=== PATIENT | female | born 1960 | race African-American/Black ===

== ENCOUNTER 2023-06-14 10:17 | Outpatient (AMB) | payer OTHER, SELFPAY ==
--- NOTE | 2023-06-14 10:25 | A.OFFVIS_ITS ---
Intake Vital Signs 06/14/23 10:26 Height 5 ft 2 in Weight 220 lb 10.923 oz BMI 40.4 BP 140/72 H Blood Pressure Location Rt brachial Position Sitting Pulse 71 Pulse Source Pulse Oximeter Pulse Oximetry (%) 99 Intake Visit Reasons: Rheumatoid Arthritis Intake Note: * New pt presents today for RA consult. Previously seen at [place]. * C/o pain in multiple joints. * Requesting MTX script, all out. 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 She had last been seen by me in August of 2021. She has remained on methotrexate 10 mg weekly with folic acid 1 mg daily. There are still pains in the knees, shoulders, and arms. Overall though she seems relatively functional with the current regimen. She does not think she had any side effects with the met hotrexate. She has been having occasional lab work to monitor its use. [facility] Medical History (Updated 06/14/23 @ 18:58 by Jean-Pierre Menjivar MD) Benign neoplasm of colon Dysphagia Hyperlipidemia Hypertension Nonischemic cardiomyopathy Osteoarthritis of multiple joints Pain in joint, multiple sites Rheumatoid arthritis Type 2 diabetes mellitus Surgical History History of salpingo-oophorectomy Hx of colonoscopy S/P cataract extraction Family History (Updated 06/14/23 @ 10:29 by ABMER Bales) Father Myocardial infarction Diabetes Hypertension Mother Arthritis Daughter Autism Brother Diabetes Social History (Updated 06/14/23 @ 10:29 by AMBER Bales) Household Members: Spouse Alcohol intake: current Alcohol intake frequency: holidays/special occasions only Patient Tobacco Use Status: Never used Tobacco Current occupational status: employed Review of Systems Const Details: Negative for appetite change, weight change, fever, chills, malaise and fatigue ENT Details: Negative for hearing change, tinnitus, oral ulcer, nose bleeds and oral dryness. Card Details: Negative chest pain, edema and syncope Resp Details: Negative for SOB, cough and wheezing GI Details: Negative indigestion/heartburn, nausea, abdominal pain, bowel changes, diarrhea, constipation and bloody stool. Endo Details: Negative for polyuria and polydypsia Kostas/Lymph Details: Negative for excessive bruising or bleeding. Physical Exam Vital Signs: Last Vital Signs Pulse 71 06/14/23 10:26 BP 140/72 H 06/14/23 10:26 Pulse Ox 99 06/14/23 10:26 BMI result Body Mass Index 40.4 APPEARANCE: Patient in no acute distress EYES no redness, pupils equal and reactive to light, eyelids normal. No temporal artery tenderness, redness or swelling. EXTREMITIES: No edema, no calf tenderness, normal peripheral pulses. JOINT EXAM:?? Cervical Spine:.? Full range of motion with slight discomfort at the extremes of motion. No tenderness. Thoracic Spine:.? No scoliosis.? No tenderness on palpation. Lumbar Spine:.? Alignment normal.? Full range of motion without pain, no tenderness. Chest Wall:.? No tenderness, swelling, increased warmth or erythema. Hands: Right: Normal pain-free range of motion with some slight thickening at the 3rd MCP. The 2nd 3rd MCP have some slight tenderness. There is no swelling or tenderness in the PIP joints. There is no flexor tendon triggering, flexor tendon tenderness or swelling. Other joints have no swelling or tenderness. Left:? Normal pain-free range of motion without tenderness, swelling, increased warmth or erythema. Able to make a full fist and has a good teacher specialist strength. Wrists: Left: Slight pain with flexion extension at 75 degrees. There is some minimal tenderness but no swelling. Right: Normal pain-free range of motion without tenderness, swelling, increased warmth or erythema. Elbows:. Normal pain-free range of motion without tenderness, swelling, increased warmth or erythema. Shoulders:. Left: Mild discomfort with abduction at 150 degrees or with extremes of rotation. Motion may be slightly limited at that point. There is some minimal anterior tenderness without swelling or abductor weakness. Right:?? Full range of motion without pain. No tenderness, weakness, swelling, increased warmth or erythema. Hips:.? Full range of motion without pain. Hip bursa:.? No tenderness. Knees:.?? Normal pain-free range of motion with mild patellofemoral crepitus. There is some minimal medial compartment tenderness bilaterally but no effusion, soft tissue swelling, increased warmth or erythema.? There is no effusion or crepitation Ankles:.? Normal pain-free range of motion without tenderness, swelling, increased warmth or erythema. Feet:.? Normal pain-free range of motion without tenderness, swelling, increased warmth or erythema. Tender points:.? No tenderness to digital palpation at the occiput, trapezius, second rib, lateral epicondyle, knees, greater trochanter and gluteal area bilaterally. ? 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 Related to cardiomyopathy - 10/03 - eye exam [place] Code(s): M06.9 - Rheumatoid arthritis, unspecified Plan Rheumatoid arthritis with it appears fairly good control of synovitis with curr ent treatment. She has not had any obvious side effects. She is due for lab work today and again in 2 months and 4 months. We will continue with treatment assuming the lab work is okay. Follow-up in 4 months. Orders: Orders Erythrocyte Sedimentation Rate Today M06.9 - Rheumatoid arthritis, unspecified Alanine Aminotransferase Today M06.9 - Rheumatoid arthritis, unspecified, Z79.899 - Other [place] [facility] (current) drug therapy Aspartate Amino Transferase Today M06.9 - Rheumatoid arthritis, unspecified, Z79.899 - Other health education assistant (current) drug therapy C Reactive Protein Today M06.9 - Rheumatoid arthritis, unspecified Complete Blood Count Auto Diff Today M06.9 - Rheumatoid arthritis, unspecified, Z79.899 - Other [place] [facility] (current) drug therapy Creatinine Today M06.9 - Rheumatoid arthritis, unspecified, Z79.899 - Other [place] [facility] (current) drug therapy Medications: New methotrexate sodium 10 mg (4 x 2.5 mg) PO QWEEK 48 tabs 1RF M06.9 - Rheumatoid arthritis, unspecified folic acid 1 mg PO DAILY 90 tabs 3RF M06.9 - Rheumatoid arthritis, unspecified Coding Level of Care Code Est Pt Level 3 (83227) Diagnoses Osteoarthritis of left glenohumeral joint M19.012 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
[2023-06-14 10:26] VITALS: BP 140/72; PULSE 71; O2SAT 99; BMI 40.4
== END 2023-06-14 11:36 | disposition home or self-care (01) ==
PROVIDERS: PCP Internal Medicine; Referring Provider Internal Medicine; Visit Provider Internal Medicine Rheumatology
DX: M19.012 Primary osteoarthritis, left shoulder (principal); Z79.899 Other long term (current) drug therapy; M06.9 Rheumatoid arthritis, unspecified
CPT/HCPCS: 99213

== ENCOUNTER → 2023-06-14 10:17 | Outpatient (BNVA) | payer OTHER, SELFPAY | PROVIDERS: Visit Provider Internal Medicine Rheumatology ==

== ENCOUNTER 2023-07-23 10:30 | Outpatient (REF) | payer OTHER, SELFPAY ==
[2023-07-23 13:45] LABS: Basophils Percent Auto 0.1 % (0-2); Eosinophils Percent Auto 0.3 % (0-4); Hematocrit 38.8 % (37.0-47.0); Hemoglobin 12.6 g/dl (12.0-16.0); Imm Gran Abs Auto 0.02 X10*3/uL (0.00-0.03); Imm Gran Pct Auto 0.3 % (0.0-0.4); Lymphocytes Absolute Auto 2.3 X10*3/uL (1.2-4.9); Lymphocytes Percent Auto 32.3 % (20-40); MANUAL DIFF FLAG SCAN; Mean Corpuscular HGB Conc 32.5 g/dl (31.0-35.0); Mean Corpuscular Hemoglobin 28.6 pg (27.0-33.0); Mean Corpuscular Volume 88.2 fL (80.0-98.0); Mean Platelet Volume 13.1 fL (9.4-12.3); Monocytes Absolute Auto 0.6 X10*3/uL (0.1-1.2); Neutrophils Absolute Auto 4.2 x10*3/uL (2.0-8.3); PLT CLUMP 1; Red Cell Distribution Width 14.2 % (11.0-16.0); SCAN SMEAR FLAG 1
[2023-07-23 13:52] LABS: White Blood Count 7.1 X10*3/uL (4.8-10.8)
[2023-07-23 13:59] LABS: Alanine Aminotransferase 14 U/L (0-31); Aspartate Amino Transferase 18 U/L (5-31); Estimated Glomerular Filt Rate > 60
[2023-07-23 14:39] LABS: Platelet Count 156 X10*3/uL (160-400); SLIDE REVIEW VERIFIED
[2023-07-23 15:03] LABS: Erythrocyte Sedimentation Rate 57 MM/HR (0-20)
== END 2023-07-23 10:31 | disposition home or self-care (01) ==
LOC: HO.10HDL 10:30
PROVIDERS: Visit Provider Internal Medicine Rheumatology
DX: M06.9 Rheumatoid arthritis, unspecified (principal); Z79.899 Other long term (current) drug therapy
CPT/HCPCS: 36415; 82565; 84450; 84460; 85025; 85652; 86140

== ENCOUNTER 2023-10-08 10:40 | Outpatient (REF) | payer OTHER, SELFPAY ==
[2023-10-08 12:17] LABS: Alanine Aminotransferase 15 U/L (0-31); Aspartate Amino Transferase 23 U/L (5-31); C Reactive Protein 0.91 mg/dL (< or = 0.50); Estimated Glomerular Filt Rate > 60
== END 2023-10-08 10:41 | disposition home or self-care (01) ==
LOC: HO.LAB 10:40
PROVIDERS: Visit Provider Internal Medicine Rheumatology
DX: M06.9 Rheumatoid arthritis, unspecified (principal); Z79.899 Other long term (current) drug therapy
CPT/HCPCS: 36415; 82565; 84450; 84460; 85025; 85652; 86140

== ENCOUNTER 2023-10-12 10:23 | Outpatient (AMB) | payer MEDICARE, OTHER, SELFPAY ==
[2023-10-12 10:34] VITALS: BP 98/64; PULSE 72; TEMP 36; BMI 39.1
--- NOTE | 2023-10-12 10:34 | A.OFFVIS_ITS ---
Intake Vital Signs 10/12/23 10:34 Height 5 ft 2 in Weight 213 lb 10.047 oz BMI 39.1 BP 98/64 Blood Pressure Location Lt brachial Position Sitting Pulse 72 Pulse Source Palpation Temp 96.8 F Temp Source Skin Intake Visit Reasons: 4 mnts f/u for RA Intake Note: Patient presents today to follow up on RA. 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 Required: No Accompanied by: Self / Same As Patient Allergies No Known Allergies Allergy (Verified 10/12/23 10:36) Medication List - Last Reconciled 10/12/23 by Jean-Pierre Menjivar MD atorvastatin 20 mg PO DAILY carvedilol 6.25 mg PO BID dulaglutide (Trulicity) mg subcut empagliflozin (Jardiance) 10 mg PO DAILY folic acid 1 mg PO DAILY furosemide 40 mg PO DAILY metformin ER 500 mg PO BID methotrexate sodium 10 mg (4 x 2.5 mg) PO QWEEK sacubitril-valsartan 24-26 mg (Entresto) 1 tab PO BID spironolactone 25 mg PO DAILY HPI HPI Comments History of Present Illness Details The patient returns for evaluation of her seropositive rheumatoid arthritis. She remains on methotrexate 10 mg weekly with folic acid 1 mg daily. Most joints are fairly comfortable. She does get some occasional sharp pains in the left wrist associated with some freezing up of the wrist. It is unclear whether this is from flexor tenosynovitis in the fingers or just muscle spasm in the wrist. She does not have any paresthesias in the hands or feet. She remains on her medicines for her CHF and diabetes. Those problems seem to be stable. [facility] Medical History (Updated 06/14/23 @ 18:58 by Jean-Pierre Menjivar MD) Benign neoplasm of colon Nonischemic cardiomyopathy Type 2 diabetes mellitus Osteoarthritis of multiple joints Pain in joint, multiple sites Rheumatoid arthritis Dysphagia Hyperlipidemia Hypertension Surgical History Hx of colonoscopy History of salpingo-oophorectomy S/P cataract extraction Family History Father Myocardial infarction Diabetes Hypertension Mother Arthritis Daughter Autism Brother Diabetes Social History Household Members: Spouse Alcohol intake: current Alcohol intake frequency: holidays/special occasions only Patient Tobacco Use Status: Never used Tobacco Current occupational status: employed Review of Systems Const Details: Negative for appetite change, weight change, fever, chills, malaise and fatigue Eyes Details: Negative for vision change, dry eyes,headaches and dizziness ENT Details: Negative for hearing change, tinnitus, oral ulcer, nose bleeds and oral dryness. Card Details: Negative chest pain, edema and syncope Resp Details: Negative for SOB, cough and wheezing GI Details: Negative indigestion/heartburn, nausea, abdominal pain, bowel changes, diarrhea, constipation and bloody stool. Endo Details: Negative for polyuria and polydypsia Kostas/Lymph Details: Negative for excessive bruising or bleeding. Physical Exam Vital Signs: Last Vital Signs Temp 96.8 F 10/12/23 10:34 Pulse 72 10/12/23 10:34 BP 98/64 10/12/23 10:34 BMI result Body Mass Index 39.1 APPEARANCE: Patient in no acute distress EYES no redness, pupils equal and reactive to light, eyelids normal EXTREMITIES: No edema, no calf tenderness, normal peripheral pulses. JOINT EXAM: Cervical Spine:.? Full range of motion with slight discomfort at the extremes of motion. No tenderness. Thoracic Spine:.? No scoliosis.? No tenderness on palpation. Lumbar Spine:.? Alignment normal.? Full range of motion without pain, no tenderness. Chest Wall:.? No tenderness, swelling, increased warmth or erythema. Hands: Right: Normal pain-free range of motion with some slight thickening at the 3rd MCP. MCP have some no tenderness. There is no swelling or tenderness in the PIP joints. There is no flexor tendon triggering, flexor tendon tenderness or swelling. Other joints have no swelling or tenderness. Left:? Normal pain-free range of motion without tenderness, swelling, increased warmth or erythema. Able to make a full fist and has a good cap sizer strength. Wrists: Left: Slight pain with flexion extension at 75 degrees. There is some minimal tenderness but no swelling. Right: Normal pain-free range of motion without tenderness, swelling, increased warmth or erythema. Elbows: Normal pain-free range of motion without tenderness, swelling, increased warmth or erythema. Shoulders:. Left: Mild discomfort with abduction at 150 degrees or with extremes of rotation. Motion may be slightly limited at that point. There is some minimal anterior tenderness without swelling or abductor weakness. Right:?? Full range of motion without pain. No tenderness, weakness, swelling, increased warmth or erythema. Hips:? Full range of motion without pain. Hip bursa:.? No tenderness. Knees:.?? Normal pain-free range of motion with mild patellofemoral crepitus. There is some minimal medial compartment tenderness bilaterally but no effusion, soft tissue swelling, increased warmth or erythema.? There is no effusion or crepitation Ankles:? Normal pain-free range of motion without tenderness, swelling, increased warmth or erythema. Feet:? Normal pain-free range of motion without tenderness, swelling, increased warmth or erythema. Tender points:? No tenderness to digital palpation at the occiput, trapezius, second rib, lateral epicondyle, knees, greater trochanter and gluteal area bilaterally. ?? 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 Related to cardiomyopathy - 10/03 - eye exam [place] Code(s): M06.9 - Rheumatoid arthritis, unspecified Plan Rheumatoid arthritis with good control of synovitis with current treatment. I think the occasional catching in the left wrist could be just muscle spasm as I do not feel any flexor tenosynovial tenderness, nodularity, or triggering. If she notes that the fingers are triggering that we could proceed with a corticosteroid injection or surgery for that problem if it is bothersome enough. She does not seem to have any side effects with the methotrexate so we will continue as above. I have recommended repeat lab work again in November and January. A follow-up in 4 months would be reasonable. Orders: Orders C Reactive Protein Today M06.9 - Rheumatoid arthritis, unspecified C Reactive Protein 1 Month M06.9 - Rheumatoid arthritis, unspecified Erythrocyte Sedimentation Rate Today M06.9 - Rheumatoid arthritis, unspecified Alanine Aminotransferase Today M06.9 - Rheumatoid arthritis, unspecified, Z79.899 - Other watermelon inspector (current) drug therapy Aspartate Amino Transferase Today M06.9 - Rheumatoid arthritis, unspecified, Z79.899 - Other [facility] (current) drug therapy Complete Blood Count Auto Diff Today M06.9 - Rheumatoid arthritis, unspecified, Z79.899 - Other watermelon inspector (current) drug therapy Creatinine Today M06.9 - Rheumatoid arthritis, unspecified, Z79.899 - Other watermelon inspector (current) drug therapy Erythrocyte Sedimentation Rate 1 Month M06.9 - Rheumatoid arthritis, unspecified Coding Level of Care Code Est Pt Level 3 (30322) Diagnoses [facility] current use of immunosuppressive drug Z79.899 Rheumatoid arthritis M06.9
== END 2023-10-12 11:14 | disposition home or self-care (01) ==
PROVIDERS: PCP Internal Medicine; Visit Provider Internal Medicine Rheumatology
DX: Z79.899 Other long term (current) drug therapy (principal); M06.9 Rheumatoid arthritis, unspecified
CPT/HCPCS: 99213

== ENCOUNTER → 2023-10-12 10:23 | Outpatient (BNVA) | payer OTHER, SELFPAY | PROVIDERS: PCP Internal Medicine; Visit Provider Internal Medicine Rheumatology ==

== ENCOUNTER 2024-01-27 11:32 | Outpatient (REF) | payer OTHER, SELFPAY ==
[2024-01-27 11:50] LABS: MANUAL DIFF FLAG NO
[2024-01-27 12:32] LABS: Basophils Percent Auto 0.3 % (0-2); Eosinophils Absolute Auto 0.1 X10*3/uL (0.0-0.4); Eosinophils Percent Auto 0.9 % (0-4); Hematocrit 37.8 % (37.0-47.0); Hemoglobin 12.4 g/dl (12.0-16.0); Imm Gran Abs Auto 0.02 X10*3/uL (0.00-0.03); Imm Gran Pct Auto 0.3 % (0.0-0.4); Lymphocytes Percent Auto 26.3 % (20-40); Mean Corpuscular HGB Conc 32.8 g/dl (31.0-35.0); Mean Corpuscular Hemoglobin 28.8 pg (27.0-33.0); Mean Corpuscular Volume 87.7 fL (80.0-98.0); Mean Platelet Volume 11.7 fL (9.4-12.3); Monocytes Absolute Auto 0.6 X10*3/uL (0.1-1.2); Monocytes Percent Auto 7.7 % (2-11); Neutrophils Absolute Auto 4.8 x10*3/uL (2.0-8.3); Neutrophils Percent Auto 64.5 % (45-73); Platelet Count 174 X10*3/uL (160-400); Red Blood Count 4.31 X10*6/uL (4.20-5.50); Red Cell Distribution Width 13.3 % (11.0-16.0); White Blood Count 7.4 X10*3/uL (4.8-10.8)
[2024-01-27 13:04] LABS: Alanine Aminotransferase 12 U/L (0-31); Aspartate Amino Transferase 16 U/L (5-31); C Reactive Protein 1.65 mg/dL (< or = 0.50); Estimated Glomerular Filt Rate > 60
[2024-01-27 13:17] LABS: Erythrocyte Sedimentation Rate 66 MM/HR (0-20)
== END 2024-01-27 11:33 | disposition home or self-care (01) ==
LOC: HO.LAB 11:32
PROVIDERS: Visit Provider Internal Medicine Rheumatology
DX: M06.9 Rheumatoid arthritis, unspecified (principal); Z79.899 Other long term (current) drug therapy
CPT/HCPCS: 36415; 82565; 84450; 84460; 85025; 85652; 86140

== ENCOUNTER 2024-02-01 10:44 | Outpatient (AMB) | payer MEDICARE, OTHER, SELFPAY ==
[2024-02-01 10:58] VITALS: BP 100/60; PULSE 80; TEMP 36; O2SAT 99; BMI 37.5
--- NOTE | 2024-02-01 10:58 | MHC.OFFVIS ---
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 MTX last taken some time last month. Patient unable to get a hold of the office. Metals Sales Representative Required: No Accompanied by: Self / Same As Patient Allergies No Known Allergies Allergy (Verified 02/01/24 11:02) HPI HPI Comments History of Present Illness Details Ms. Go 63 yoF returns for evaluation of her seropositive rheumatoid arthritis. She remains on methotrexate 10 mg weekly with folic acid 1 mg daily. She has been on methotrexate 10 mg for over 4 years. She says most joints are fairly comfortable and she is used to the pain. She also gets some occasional sharp pains in the left wrist associated with some freezing up of the wrist. She remains on her medicines for her CHF and diabetes. She denies any no side effects from the methotrexate. She has not taken methotrexate in 1 month because her prescription ran out. She denies increase arthralgias since being off methotrexate. However she did continue to take the folic acid. The patient has chronically elevated ESR and CRP since she was diagnosed with RA and started treatment. At some point on hydroxychloroquine which was stopped due to diabetic retinopathy. She knows that her ESR and CRP has been chronically elevated, and says that it is an improvement when she just started - in the 80s now in the 60s. September [address]23 Dr. Menjivar: The patient returns for evaluation of her seropositive rheumatoid arthritis. She remains on methotrexate 10 mg weekly with folic acid 1 mg daily. Most joints are fairly comfortable. She does get some occasional sharp pains in the left wrist associated with some freezing up of the wrist. It is unclear whether this is from flexor tenosynovitis in the fingers or just muscle spasm in the wrist. She does not have any paresthesias in the hands or feet. She remains on her medicines for her CHF and diabetes. Those problems seem to be stable. [facility] Medical History (Updated 02/01/24 @ 17:30 by Lenka Antwan, STORE [facility]) Benign neoplasm of colon Nonischemic cardiomyopathy Type 2 diabetes mellitus Osteoarthritis of multiple joints Pain in joint, multiple sites Rheumatoid arthritis Dysphagia Hyperlipidemia Hypertension Surgical History Hx of colonoscopy History of salpingo-oophorectomy S/P cataract extraction Family History Father Myocardial infarction Diabetes Hypertension Mother Arthritis Daughter Autism Brother Diabetes Social History Household Members: Spouse Alcohol intake: current Alcohol intake frequency: holidays/special occasions only Patient Tobacco Use Status: Never used Tobacco Current occupational status: employed Review of Systems Const All systems reviewed & are unremarkable except as noted in HPI and below Physical Exam Vital Signs: Last Vital Signs Temp 96.8 F 02/01/24 10:58 Pulse 80 02/01/24 10:58 BP 100/60 02/01/24 10:58 Pulse Ox 99 02/01/24 10:58 Oxygen Delivery Method Room Air 02/01/24 10:58 BMI result Body Mass Index 37.5 APPEARANCE: Patient in no acute distress EYES no redness, pupils equal and reactive to light, eyelids normal EXTREMITIES: No edema, no calf tenderness, normal peripheral pulses. JOINT EXAM: Cervical Spine:.? Full range of motion with slight discomfort at the extremes of motion. No tenderness. Thoracic Spine:.? No scoliosis.? No tenderness on palpation. Lumbar Spine:.? Alignment normal.? Full range of motion without pain, no tenderness. Chest Wall:.? No tenderness, swelling, increased warmth or erythema. Hands: Right: Normal pain-free range of motion with some slight thickening at the 3rd MCP. MCP have no tenderness. There is no swelling or tenderness in the PIP joints. There is no flexor tendon triggering, flexor tendon tenderness or swelling. Other joints have no swelling or tenderness. Left:? Normal pain-free range of motion without tenderness, swelling, increased warmth or erythema. Able to make a full fist and has a good installer interior assemblies strength. Wrists: Left: Slight pain with flexion extension at 75 degrees. There is some minimal tenderness but no swelling. Right: Normal pain-free range of motion without tenderness, swelling, increased warmth or erythema. Elbows: Normal pain-free range of motion without tenderness, swelling, increased warmth or erythema. Shoulders:. Left: Mild discomfort with abduction at 150 degrees or with extremes of rotation. Motion may be slightly limited at that point. There is some minimal anterior tenderness without swelling or abductor weakness. Right:?? Full range of motion without pain. No tenderness, weakness, swelling, increased warmth or erythema. Hips:? Full range of motion without pain. Hip bursa:.? No tenderness. Knees:.?? Normal pain-free range of motion with mild patellofemoral crepitus. There is some minimal medial compartment tenderness bilaterally but no effusion, soft tissue swelling, increased warmth or erythema.? There is no effusion or crepitation Ankles:? Normal pain-free range of motion without tenderness, swelling, increased warmth or erythema. Feet:? Normal pain-free range of motion without tenderness, swelling, increased warmth or erythema. Tender points:? No tenderness to digital palpation at the occiput, trapezius, second rib, lateral epicondyle, knees, greater trochanter and gluteal area bilaterally. ?? Results Reviewed Results Reviewed: Laboratory Tests 01/27/24 11:49 WBC 7.4 RBC 4.31 Hgb 12.4 Hct 37.8 ESR 66 H Creatinine 0.74 Estimated GFR > 60 AST 16 ALT 12 C-Reactive Protein 1.65 H Assessment & Plan Assessment & Plan (1) residential current use of immunosuppressive drug: Code(s): Z79.899 - Other [facility] (current) drug therapy (2) Rheumatoid arthritis: Comment: Low positive rheumatoid factor; positive CCP antibody Hydroxychloroquine started 2016, eye exam [place] 03/03 scleritis 2018 Methotrexate added 04/01 Hydroxychloroquine stopped - ? Related to cardiomyopathy - 10/03 - eye exam [place] Code(s): M06.9 - Rheumatoid arthritis, unspecified Qualifiers: Rheumatoid arthritis location: multiple sites Rheumatoid factor presence: with rheumatoid factor Qualified Code(s): M05.79 - Rheumatoid arthritis with rheumatoid factor of multiple sites without organ or systems involvement Plan # SEROPOSITIVE RA: Though the patient has no synovitis on exam, there is tenderness to hand IP joints. Given her chronically elevated CRP/ESR on 4 pills of methotrexate, it is reasonable to say that the Rheumatoid arthritis management can improve. I think she has gotten use to a level of discomfort and assume it may be unrelated to her RA. She does not seem to have any side effects with the methotrexate so I will increase methotrexate to 6 pills and reassess in 3 months. On 10 mg of methotrexate her ESR and CRP though elevated has maintained stable in certain ranges and once she stopped the methotrexate for 1 month the numbers have gone up. It is therefore the hope that the increase in methotrexate will treat the subacute disease process. She also have diabetes mellitus which is controlled but we will keep that in mind as diabetes mellitus can affect the CRP. # long-term use: Her current labs for CMP and CBC are within good ranges to continue and increase the methotrexate. The patient is aware of the possible side effects of methotrexate. She knows to hold the methotrexate in event of fevers, infections, surgeries, and nonhealing wounds I spent 35 minutes reviewing history, evaluating patient, and documenting Follow-up in 3 months Orders: Orders Complete Blood Count Auto Diff 3 Months M06.9 - Rheumatoid arthritis, unspecified, Z79.899 - Other parts counterman (current) drug therapy Erythrocyte Sedimentation Rate 3 Months M06.9 - Rheumatoid arthritis, unspecified C Reactive Protein 3 Months M06.9 - Rheumatoid arthritis, unspecified Comprehensive Met. 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
== END 2024-02-01 11:59 | disposition home or self-care (01) ==
PROVIDERS: PCP Internal Medicine; Visit Provider Nurse Practitioner Family
DX: Z79.899 Other long term (current) drug therapy (principal); M05.79 Rheumatoid arthritis with rheumatoid factor of multiple sites without organ or systems involvement
CPT/HCPCS: 99214

== ENCOUNTER → 2024-02-01 10:44 | Outpatient (BNVA) | payer OTHER, SELFPAY | PROVIDERS: PCP Internal Medicine; Visit Provider Nurse Practitioner Family | DX: M05.79 Rheumatoid arthritis with rheumatoid factor of multiple sites without organ or systems involvement (principal); Z79.60 Long term (current) use of unspecified immunomodulators and immunosuppressants | CPT/HCPCS: 99212 ==

== ENCOUNTER 2024-04-24 10:56 | Outpatient (REF) | payer MEDICARE, OTHER, SELFPAY ==
[2024-04-24 11:19] LABS: MANUAL DIFF FLAG NO
[2024-04-24 11:58] LABS: Basophils Percent Auto 0.4 % (0-2); Eosinophils Absolute Auto 0.1 X10*3/uL (0.0-0.4); Eosinophils Percent Auto 1.3 % (0-4); Hematocrit 41.2 % (37.0-47.0); Hemoglobin 13.2 g/dl (12.0-16.0); Imm Gran Abs Auto 0.03 X10*3/uL (0.00-0.03); Imm Gran Pct Auto 0.4 % (0.0-0.4); Lymphocytes Absolute Auto 1.7 X10*3/uL (1.2-4.9); Lymphocytes Percent Auto 24.1 % (20-40); Mean Corpuscular Hemoglobin 28.9 pg (27.0-33.0); Mean Corpuscular Volume 90.2 fL (80.0-98.0); Monocytes Absolute Auto 0.5 X10*3/uL (0.1-1.2); Monocytes Percent Auto 6.3 % (2-11); Neutrophils Absolute Auto 4.9 x10*3/uL (2.0-8.3); Neutrophils Percent Auto 67.5 % (45-73); Platelet Count 174 X10*3/uL (160-400); Red Blood Count 4.57 X10*6/uL (4.20-5.50); Red Cell Distribution Width 13.7 % (11.0-16.0); White Blood Count 7.2 X10*3/uL (4.8-10.8)
[2024-04-24 12:37] LABS: Erythrocyte Sedimentation Rate 41 MM/HR (0-20)
[2024-04-24 12:51] LABS: Alanine Aminotransferase 18 U/L (0-31); Albumin Level 3.8 g/dL (3.5-5.0); Alkaline Phosphatase 78 U/L (39-117); Anion Gap 10 (12-20); Aspartate Amino Transferase 22 U/L (5-31); Bilirubin Total 0.5 mg/dL (0.0-1.0); Blood Urea Nitrogen 17 mg/dL (9-16); C Reactive Protein 0.89 mg/dL (< or = 0.50); Calcium 9.8 mg/dL (8.4-10.2); Carbon Dioxide 29 mmol/L (22-29); Chloride 105 mmol/L (96-108); Estimated Glomerular Filt Rate > 60; Glucose Random 109 mg/dL (60-115); Potassium 3.8 mmol/L (3.3-5.1); Sodium 140 mmol/L (135-145); Total Protein 7.7 g/dL (6.5-8.0)
== END 2024-04-24 10:57 | disposition home or self-care (01) ==
LOC: HO.LAB 10:56
PROVIDERS: Visit Provider Nurse Practitioner Family
DX: M06.9 Rheumatoid arthritis, unspecified (principal); Z79.899 Other long term (current) drug therapy
CPT/HCPCS: 36415; 80053; 85025; 85652; 86140

== ENCOUNTER 2024-05-02 10:31 | Outpatient (AMB) | payer MEDICARE, OTHER, SELFPAY ==
--- NOTE | 2024-05-02 10:43 | MHC.OFFVIS ---
Vital Signs 05/02/24 10:51 Height 5 ft 2 in Weight 202 lb 6.15 oz BMI 37.0 BP 126/72 Blood Pressure Location Rt brachial Position Sitting Pulse 83 Pulse Source Pulse Oximeter Pulse Oximetry (%) 99 Oxygen Delivery Method Room Air Intake Visit Reasons: RA Intake Note: L elbow pain since yesterday Recooperer Required: No Accompanied by: Self / Same As Patient Allergies No Known Allergies Allergy (Verified 05/02/24 10:52) HPI Comments Details: Ms. Go 63 yoF returns for evaluation of her seropositive rheumatoid arthritis. She remains on methotrexate 15 mg weekly with folic acid 1 mg daily. She had been on methotrexate 10 mg for over 4 years but we increased the dosage to 15mg at last visit. She says most joints are fairly comfortable and she is used to the pain and denies any relief with the increase. She remains on her medicines for her CHF and diabetes. She denies any known side effects from the methotrexate. She has started to exercise and do strength training. There is a mild pain to the left lateral elbow, started yesterday (05/01/24), she suspect related to weightlifting. January Antwan: Ms. Abbi Aguilar yoF returns for evaluation of her seropositive rheumatoid arthritis. She remains on methotrexate 10 mg weekly with folic acid 1 mg daily. She has been on methotrexate 10 mg for over 4 years. She says most joints are fairly comfortable and she is used to the pain. She also gets some occasional sharp pains in the left wrist associated with some freezing up of the wrist. She remains on her medicines for her CHF and diabetes. She denies any no side effects from the methotrexate. She has not taken methotrexate in 1 month because her prescription ran out. She denies increase arthralgias since being off methotrexate. However she did continue to take the folic acid. The patient has chronically elevated ESR and CRP since she was diagnosed with RA and started treatment. At some point on hydroxychloroquine which was stopped due to diabetic retinopathy. She knows that her ESR and CRP has been chronically elevated, and says that it is an improvement when she just started - in the 80s now in the 60s. September 2023 Dr. Menjivar: The patient returns for evaluation of her seropositive rheumatoid arthritis. She remains on methotrexate 10 mg weekly with folic acid 1 mg daily. Most joints are fairly comfortable. She does get some occasional sharp pains in the left wrist associated with some freezing up of the wrist. It is unclear whether this is from flexor tenosynovitis in the fingers or just muscle spasm in the wrist. She does not have any paresthesias in the hands or feet. She remains on her medicines for her CHF and diabetes. Those problems seem to be stable. [facility] Medical History (Updated 02/01/24 @ 17:30 by PARISH Bonilla) Benign neoplasm of colon Nonischemic cardiomyopathy Type 2 diabetes mellitus Osteoarthritis of multiple joints Pain in joint, multiple sites Rheumatoid arthritis Dysphagia Hyperlipidemia Hypertension Surgical History Hx of colonoscopy History of salpingo-oophorectomy S/P cataract extraction Family History Father Myocardial infarction Diabetes Hypertension Mother Arthritis Daughter Autism Brother Diabetes Social History Household Members: Spouse Alcohol intake: current Alcohol intake frequency: holidays/special occasions only Patient Tobacco Use Status: Never used Tobacco Current occupational status: employed Review of Systems Const All systems reviewed & are unremarkable except as noted in HPI and below Physical Exam APPEARANCE: Patient in no acute distress EYES no redness, pupils equal and reactive to light, eyelids normal EXTREMITIES: No edema, no calf tenderness, normal peripheral pulses. JOINT EXAM: Cervical Spine:.? Full range of motion with slight discomfort at the extremes of motion. No tenderness. Thoracic Spine:.? No scoliosis.? No tenderness on palpation. Lumbar Spine:.? Alignment normal.? Full range of motion without pain, no tenderness. Chest Wall:.? No tenderness, swelling, increased warmth or erythema. Hands: Right: Normal pain-free range of motion with some slight thickening at the 3rd MCP. MCP have no tenderness. There is no swelling or tenderness in the PIP joints. There is no flexor tendon triggering, flexor tendon tenderness or swelling. Other joints have no swelling or tenderness. Left:? Normal pain-free range of motion without tenderness, swelling, increased warmth or erythema. 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 Wrists: Left: Slight pain with flexion extension at 75 degrees. There is some minimal tenderness but no swelling. Right: Normal pain-free range of motion without tenderness, swelling, increased warmth or erythema. Elbows: Right:Normal pain-free range of motion without tenderness, swelling, increased warmth or erythema. Left: Lateral trace swelling and tenderness- from strength training. Shoulders:. Left: Mild discomfort with abduction at 150 degrees or with extremes of rotation. Motion may be slightly limited at that point. There is some minimal anterior tenderness without swelling or abductor weakness. Right:?? Full range of motion without pain. No tenderness, weakness, swelling, increased warmth or erythema. Hips:? Full range of motion without pain. Hip bursa:.? No tenderness. Knees:.?? Normal pain-free range of motion with mild patellofemoral crepitus. There is some minimal medial compartment tenderness bilaterally but no effusion, soft tissue swelling, increased warmth or erythema.? There is no effusion or crepitation Ankles:? Normal pain-free range of motion without tenderness, swelling, increased warmth or erythema. Feet:? Normal pain-free range of motion without tenderness, swelling, increased warmth or erythema. Tender points:? No tenderness to digital palpation at the occiput, trapezius, second rib, lateral epicondyle, knees, greater trochanter and gluteal area bilaterally. ?? 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 Related to cardiomyopathy - 10/03 - eye exam OK Code(s): M06.9 - Rheumatoid arthritis, unspecified Category: Medical Qualifiers: Rheumatoid arthritis location: multiple sites Rheumatoid factor presence: with rheumatoid factor Qualified Code(s): M05.79 - Rheumatoid arthritis with rheumatoid factor of multiple sites without organ or systems involvement Plan #SEROPOSITIVE RA: Though the patient has no synovitis on exam, there is tenderness to hand IP joints. Given her chronically elevated CRP/ESR on 4 pills of methotrexate, it is reasonable to say that the Rheumatoid arthritis management can improve. I think she has gotten use to a level of discomfort and assume it may be unrelated to her RA. She denied any improvement to hands and feet from increase methotrexate to 6 pills. Her ESR/CRP did improve. We will increase to 10 pills and reassess. Historically, on 10 mg of methotrexate her ESR and CRP though elevated has maintained stable in certain ranges and once she stopped the methotrexate for 1 month the numbers have gone up. It is therefore the hope that the increase in methotrexate will treat the subacute disease process. She also have diabetes mellitus which is controlled but we will keep that in mind as diabetes mellitus can affect the CRP. # long-term Use: Her current labs for CMP and CBC are within good ranges to continue and increase the methotrexate. The patient is aware of the possible side effects of methotrexate. She knows to hold the methotrexate in event of fevers, infections, surgeries, and nonhealing wounds I spent 25 minutes reviewing chart, evaluating patient, and documenting Follow-up in 3 months Orders: Orders Erythrocyte Sedimentation Rate 3 Months M05.79 - Rheumatoid arthritis with rheumatoid factor of multiple sites without organ or systems involvement, Z79.899 - Other watermelon harvesting supervisor (current) drug therapy Comprehensive Met. Panel 3 Months M05.79 - Rheumatoid arthritis with rheumatoid factor of multiple sites without organ or systems involvement, Z79.899 - Other senior care (current) drug therapy C Reactive Protein 3 Months M05.79 - Rheumatoid arthritis with rheumatoid factor of multiple sites without organ or systems involvement, Z79.899 - Other watermelon harvesting supervisor (current) drug therapy Immunoglobulins,IgG IgA IgM 3 Months M05.79 - Rheumatoid arthritis with rheumatoid factor of multiple sites without organ or systems involvement, Z79.899 - Other senior care (current) drug therapy Complete Blood Count Auto Diff 3 Months M05.79 - Rheumatoid arthritis with rheumatoid factor of multiple sites without organ or systems involvement, Z79.899 - Other senior care (current) drug therapy Medications: Changed From methotrexate sodium 15 mg (6 x 2.5 mg) PO QWEEK 72 tabs 1RF M06.9 - Rheumatoid arthritis, unspecified To methotrexate sodium 20 mg (8 x 2.5 mg) PO QWEEK 96 tabs 1RF M06.9 - Rheumatoid arthritis, unspecified Refilled folic acid 1 mg PO DAILY 90 tabs 3RF M06.9 - Rheumatoid arthritis, unspecified Coding Level of Care Code Est Pt Level 3 (64966) Complex EM visit Add On G2211 Diagnoses buttermaker 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
[2024-05-02 10:51] VITALS: BP 126/72; PULSE 83; O2SAT 99; BMI 37.0
== END 2024-05-02 11:25 | disposition home or self-care (01) ==
PROVIDERS: PCP Internal Medicine; Visit Provider Nurse Practitioner Family
DX: Z79.899 Other long term (current) drug therapy (principal); M05.79 Rheumatoid arthritis with rheumatoid factor of multiple sites without organ or systems involvement
CPT/HCPCS: 99213; G2211

== ENCOUNTER → 2024-05-02 10:31 | Outpatient (BNVA) | payer MEDICARE, OTHER, SELFPAY | PROVIDERS: PCP Internal Medicine; Visit Provider Nurse Practitioner Family | DX: M05.79 Rheumatoid arthritis with rheumatoid factor of multiple sites without organ or systems involvement (principal); Z79.631 Long term (current) use of antimetabolite agent; Z79.899 Other long term (current) drug therapy | CPT/HCPCS: 99212 ==

== ENCOUNTER 2024-07-31 10:03 | Outpatient (REF) | payer MEDICARE, OTHER, SELFPAY ==
[2024-07-31 10:32] LABS: MANUAL DIFF FLAG NO
[2024-07-31 11:04] LABS: Basophils Percent Auto 0.4 % (0-2); Eosinophils Absolute Auto 0.1 X10*3/uL (0.0-0.4); Eosinophils Percent Auto 0.7 % (0-4); Hematocrit 37.7 % (37.0-47.0); Hemoglobin 12.3 g/dl (12.0-16.0); Imm Gran Abs Auto 0.02 X10*3/uL (0.00-0.03); Imm Gran Pct Auto 0.3 % (0.0-0.4); Lymphocytes Absolute Auto 2.2 X10*3/uL (1.2-4.9); Lymphocytes Percent Auto 30.5 % (20-40); Mean Corpuscular HGB Conc 32.6 g/dl (31.0-35.0); Mean Corpuscular Hemoglobin 29.5 pg (27.0-33.0); Mean Corpuscular Volume 90.4 fL (80.0-98.0); Mean Platelet Volume 11.7 fL (9.4-12.3); Monocytes Absolute Auto 0.7 X10*3/uL (0.1-1.2); Monocytes Percent Auto 9.6 % (2-11); Neutrophils Absolute Auto 4.2 x10*3/uL (2.0-8.3); Neutrophils Percent Auto 58.5 % (45-73); Platelet Count 186 X10*3/uL (160-400); Red Blood Count 4.17 X10*6/uL (4.20-5.50); Red Cell Distribution Width 14.5 % (11.0-16.0); White Blood Count 7.2 X10*3/uL (4.8-10.8)
[2024-07-31 11:44] LABS: Erythrocyte Sedimentation Rate 56 MM/HR (0-20)
[2024-07-31 12:18] LABS: Alanine Aminotransferase 15 U/L (0-31); Albumin Level 3.6 g/dL (3.5-5.0); Alkaline Phosphatase 76 U/L (39-117); Anion Gap 10 (12-20); Aspartate Amino Transferase 18 U/L (5-31); Bilirubin Total 0.7 mg/dL (0.0-1.0); Blood Urea Nitrogen 14 mg/dL (9-16); C Reactive Protein 1.01 mg/dL (< or = 0.50); Calcium 9.5 mg/dL (8.4-10.2); Carbon Dioxide 28 mmol/L (22-29); Chloride 105 mmol/L (96-108); Estimated Glomerular Filt Rate > 60; Glucose Random 113 mg/dL (60-115); Potassium 3.6 mmol/L (3.3-5.1); Sodium 139 mmol/L (135-145); Total Protein 7.3 g/dL (6.5-8.0)
[2024-08-01 10:37] LABS: IgA 393 mg/dL (70-320); IgG 1562 mg/dL (600-1540); IgM 58 mg/dL (50-300)
== END 2024-07-31 10:04 | disposition home or self-care (01) ==
LOC: HO.LAB 10:03
PROVIDERS: PCP Internal Medicine; Visit Provider Nurse Practitioner Family
DX: M05.79 Rheumatoid arthritis with rheumatoid factor of multiple sites without organ or systems involvement (principal); Z79.899 Other long term (current) drug therapy
CPT/HCPCS: 36415; 80053; 82784; 85025; 85652; 86140

== ENCOUNTER 2024-08-08 09:52 | Outpatient (AMB) | payer MEDICARE, OTHER, SELFPAY ==
--- NOTE | 2024-08-08 09:57 | A.OFFVIS_ITS ---
Vital Signs 08/08/24 10:02 Height 5 ft 2 in Weight 196 lb 10.437 oz BMI 36.0 BP 120/70 Blood Pressure Location Rt brachial Position Sitting Pulse 84 Pulse Oximetry (%) 98 Oxygen Delivery Method Room Air Intake Visit Reasons: RA/Left Elbow Pain Intake Note: Patient presents for RA/left elbow pain. Allergies No Known Allergies Allergy (Verified 08/08/24 10:01) Medication List - Last Reconciled 08/08/24 by Brittany Bundy MD atorvastatin 20 mg PO DAILY carvedilol 6.25 mg PO BID dulaglutide (Trulicity) mg subcut empagliflozin (Jardiance) 10 mg PO DAILY folic acid 1 mg PO DAILY furosemide 40 mg PO DAILY metformin ER 500 mg PO BID methotrexate sodium 15 mg (6 x 2.5 mg) PO QWEEK sacubitril-valsartan 24-26 mg (Entresto) 1 tab PO BID spironolactone 25 mg PO DAILY HPI Comments Details: This is a 64-year-old female with seropositive RA who presents for follow-up. Last visit her methotrexate was increased to 10 tablets once weekly. This has been well tolerated. She states that has been having significantly less frequent flare-ups of joint pains and swelling. She states that now has toe pain for folic acid. She mentions that she had a throat and ear infection 5-6 weeks ago. It has resolved. COUNTS INCLUDE 234 BEDS AT THE [facility] Medical History Benign neoplasm of colon Nonischemic cardiomyopathy Type 2 diabetes mellitus Osteoarthritis of multiple joints Pain in joint, multiple sites Rheumatoid arthritis Dysphagia Hyperlipidemia Hypertension Surgical History Hx of colonoscopy History of salpingo-oophorectomy S/P cataract extraction Family History Father Myocardial infarction Diabetes Hypertension Mother Arthritis Daughter Autism Brother Diabetes Social History Household Members: Spouse Alcohol intake: current Alcohol intake frequency: holidays/special occasions only Patient Tobacco Use Status: Never used Tobacco Current occupational status: employed Review of Systems Musc Denies arthralgias, Denies joint swelling and Denies stiffness Physical Exam Vital Signs: Last Vital Signs Pulse 84 08/08/24 10:02 BP 120/70 08/08/24 10:02 Pulse Ox 98 08/08/24 10:02 Oxygen Delivery Method Room Air 08/08/24 10:02 BMI result Body Mass Index 36.0 Const General: cooperative, healthy appearing and comfortable Nutritional Appearance: obese morbidly obese Orientation/consciousness: patient oriented x3 Limitations: no limitations HEENT Head: Yes normocephalic and Yes atraumatic Mouth: moist mucous membranes Resp Effort & Inspection: normal respiratory effort and able to speak in complete sentences Auscultation: clear to auscultation bilaterally Cardio Rate: regular rate Rhythm: regular rhythm Skin General skin exam: no rashes or lesions noted Neuro General: patient oriented x3 Extrem Other: No active synovitis Normal range of motion of hands, wrists, elbows, shoulders without pain No knee pain with flexion-extension bilaterally Normal nailfold capillaroscopy Assessment & Plan Assessment & Plan (1) Rheumatoid arthritis: Comment: ++RF+++CCP Hydroxychloroquine started 2016, eye exam OK 03/03 scleritis 2017 Methotrexate added 04/01 Hydroxychloroquine stopped - ? Related to cardiomyopathy - 10/03 - eye exam OK Code(s): M06.9 - Rheumatoid arthritis, unspecified Category: Medical Qualifiers: Rheumatoid arthritis location: multiple sites Rheumatoid factor prese nce: with rheumatoid factor Qualified Code(s): M05.79 - Rheumatoid arthritis with rheumatoid factor of multiple sites without organ or systems involvement Plan: This is a 64-year-old female with seropositive RA who presents for follow-up. This is her 1st visit with me. Her methotrexate was increased to 25 mg p.o. once weekly by Lenka Arnett last visit with significantly improved joint pains and swelling. There is no active synovitis on exam. Continue methotrexate 25 mg p.o. weekly Patient has been paying for folic acid. DC folic acid and start Leucovorin 5 mg once weekly the day after methotrexate Labs before next visit in 3-4 months (2) shelter current use of immunosuppressive drug: Code(s): Z79.899 - Other senior care (current) drug therapy Category: Medical Plan: Monitor safety labs Plan I spent 25 minutes reviewing patient's chart, evaluating patient, ordering diagnostic workup, counseling patient and documenting in the chart Orders: Orders C Reactive Protein 3 Months M05.79 - Rheumatoid arthritis with rheumatoid factor of multiple sites without organ or systems involvement, Z79.899 - Other senior care (current) drug therapy Complete Blood Count Auto Diff 3 Months M05.79 - Rheumatoid arthritis with rheumatoid factor of multiple sites without organ or systems involvement, Z79.899 - Other senior care (current) drug therapy Comprehensive Met. Panel 3 Months M05.79 - Rheumatoid arthritis with rheumatoid factor of multiple sites without organ or systems involvement, Z79.899 - Other superintendent marine oil terminal (current) drug therapy Erythrocyte Sedimentation Rate 3 Months M05.79 - Rheumatoid arthritis with rheumatoid factor of multiple sites without organ or systems involvement, Z79.899 - Other superintendent marine oil terminal (current) drug therapy Medications: New leucovorin calcium Take 1 tab once weekly the day after you take methotrexate 5 mg PO QWEEK 12 tabs 0RF Changed From methotrexate sodium 15 mg (6 x 2.5 mg) PO QWEEK 72 tabs 1RF M06.9 - Rheumatoid arthritis, unspecified To methotrexate sodium 25 mg (10 x 2.5 mg) PO QWEEK 120 tabs 1RF M06.9 - Rheumatoid arthritis, unspecified Discontinued folic acid Discontinued Reason: Doctor's Order 1 mg PO DAILY 90 tabs 3RF M06.9 - Rheumatoid arthritis, unspecified Coding Level of Care Code Est Pt Level 4 (13760) Diagnoses Rheumatoid arthritis involving multiple sites with positive rheumatoid factor .79 Rheumatoid arthritis location: multiple sites Rheumatoid factor presence: with rheumatoid factor manager terminal current use of immunosuppressive drug Z79.899
[2024-08-08 10:02] VITALS: BP 120/70; PULSE 84; O2SAT 98; BMI 36.0
== END 2024-08-08 10:54 | disposition home or self-care (01) ==
PROVIDERS: PCP Internal Medicine; Visit Provider Student in an Organized Health Care Education/Training Program
DX: M05.79 Rheumatoid arthritis with rheumatoid factor of multiple sites without organ or systems involvement (principal); Z79.899 Other long term (current) drug therapy
CPT/HCPCS: 99214

== ENCOUNTER → 2024-08-08 09:52 | Outpatient (BNVA) | payer MEDICARE, OTHER, SELFPAY | PROVIDERS: PCP Internal Medicine; Visit Provider Student in an Organized Health Care Education/Training Program | DX: M05.79 Rheumatoid arthritis with rheumatoid factor of multiple sites without organ or systems involvement (principal); Z79.899 Other long term (current) drug therapy | CPT/HCPCS: 99212 ==

== ENCOUNTER 2024-11-16 11:20 | Outpatient (REF) | payer MEDICARE, OTHER, SELFPAY ==
[2024-11-16 11:48] LABS: MANUAL DIFF FLAG NO
[2024-11-16 12:04] LABS: Basophils Percent Auto 0.3 % (0-2); Eosinophils Percent Auto 0.1 % (0-4); Hematocrit 39.3 % (37.0-47.0); Hemoglobin 13.1 g/dl (12.0-16.0); Imm Gran Abs Auto 0.03 X10*3/uL (0.00-0.03); Imm Gran Pct Auto 0.4 % (0.0-0.4); Lymphocytes Absolute Auto 2.3 X10*3/uL (1.2-4.9); Mean Corpuscular HGB Conc 33.3 g/dl (31.0-35.0); Mean Corpuscular Hemoglobin 29.9 pg (27.0-33.0); Mean Corpuscular Volume 89.7 fL (80.0-98.0); Mean Platelet Volume 10.8 fL (9.4-12.3); Monocytes Absolute Auto 0.7 X10*3/uL (0.1-1.2); Monocytes Percent Auto 8.4 % (2-11); Neutrophils Absolute Auto 4.9 x10*3/uL (2.0-8.3); Neutrophils Percent Auto 61.8 % (45-73); Platelet Count 178 X10*3/uL (160-400); Red Blood Count 4.38 X10*6/uL (4.20-5.50)
[2024-11-16 12:33] LABS: Alanine Aminotransferase 21 U/L (0-31); Albumin Level 3.7 g/dL (3.5-5.0); Alkaline Phosphatase 84 U/L (39-117); Anion Gap 13 (12-20); Aspartate Amino Transferase 25 U/L (5-31); Bilirubin Total 0.8 mg/dL (0.0-1.0); Blood Urea Nitrogen 37 mg/dL (9-16); Calcium 9.5 mg/dL (8.4-10.2); Carbon Dioxide 28 mmol/L (22-29); Chloride 100 mmol/L (96-108); Estimated Glomerular Filt Rate > 60; Glucose Random 106 mg/dL (60-115); Potassium 4.5 mmol/L (3.3-5.1); Sodium 136 mmol/L (135-145); Total Protein 7.8 g/dL (6.5-8.0)
[2024-11-16 13:17] LABS: Erythrocyte Sedimentation Rate 60 MM/HR (0-20)
== END 2024-11-16 11:21 | disposition home or self-care (01) ==
LOC: HO.LAB 11:20
PROVIDERS: PCP Internal Medicine; Visit Provider Student in an Organized Health Care Education/Training Program
DX: M05.79 Rheumatoid arthritis with rheumatoid factor of multiple sites without organ or systems involvement (principal); Z79.899 Other long term (current) drug therapy
CPT/HCPCS: 36415; 80053; 85025; 85652; 86140

== ENCOUNTER 2024-11-21 09:32 | Outpatient (AMB) | payer MEDICARE, OTHER, SELFPAY ==
--- NOTE | 2024-11-21 09:37 | MHC.OFFVIS ---
Vital Signs 11/21/24 09:40 Height 5 ft 2 in Weight 202 lb 13.204 oz BMI 37.1 BP 116/60 Blood Pressure Location Rt brachial Position Sitting Pulse 70 Pulse Source Pulse Oximeter Pulse Oximetry (%) 99 Oxygen Delivery Method Room Air Intake Visit Reasons: RA Intake Note: Patient presents for RA. Allergies No Known Allergies Allergy (Verified 11/21/24 09:40) HPI Comments Details: Patient is a 64-year-old female with hypertension, hyperlipidemia, heart failure with reduced ejection fraction who presents today for follow up of seropositive rheumatoid arthritis Interval History: Patient last seen 08/08/[address] Bundy. At that time there was no active synovitis on examination after increasing her methotrexate dose to 25 mg once weekly. She was started on leucovorin 5 mg once weekly the day after methotrexate due to intolerance of folic acid. Today, Patient states that she is taking 8 pills of the methotrexate. All at one time. Doing well with the leucovorin Complaints today: - Left knee pain. x 2 months. Worse in the evening. No apparent difficulties ambulating stairs. - Numbness and tingling to bilateral hands R>L. Sometimes wakes up in the night and has to shake out the right hand Rheumatologic History: Diagnosed with RA based on joint pain with synovitis and positive RF and CCP Hydroxychloroquine started 2016 scleritis 2017 Methotrexate added 04/01 Hydroxychloroquine stopped 2018 - ? Related to cardiomyopathy Current Rheumatology Medication(s): Methotrexate 20 mg once weekly Leucovorin 5mg once weekly (day after Mtx) [facility] Medical History (Updated 11/21/24 @ 10:22 by Audra Moore MD) Osteoarthritis of knees, bilateral Carpal tunnel syndrome on both sides Benign neoplasm of colon Nonischemic cardiomyopathy Type 2 diabetes mellitus Osteoarthritis of multiple joints Pain in joint, multiple sites Rheumatoid arthritis Dysphagia Hyperlipidemia Hypertension Surgical History Hx of colonoscopy History of salpingo-oophorectomy S/P cataract extraction Family History Father Myocardial infarction Diabetes Hypertension Mother Arthritis Daughter Autism Brother Diabetes Social History Household Members: Spouse Alcohol intake: current Alcohol intake frequency: holidays/special occasions only Patient Tobacco Use Status: Never used Tobacco Current occupational status: employed Review of Systems Const Details: Review of Systems Constitutional: Denies fever, chills, weight loss ENT: Denies vision changes, eye pain or eye redness, dental caries, dry mouth GI: Denies nausea, vomiting, diarrhea, abdominal pain, change in BM Pulm: Denies SOB, OWENS, hemoptysis, wheezing Cards: Denies chest pain, palpitations Skin: Denies Raynaud's, rash, nail changes, photosensitivity, CAR 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 Well appearing and in no apparent painful distress HEENT Conjunctiva and sclera clear. ?Pupils equal round and reactive to light. ?No lymphadenopathy. ? CHEST/RESPIRATORY SYSTEM Normal respiratory effort and able to speak in complete sentences. ?Clear to auscultation bilaterally. ?No crackles, rales, rhonchi, wheezes heard. CARDIAC SYSTEM Regular rate and rhythm. ?S1 and S2 heard no murmurs. 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 No deformities noted. ?No synovitis noted to the MCPs, PIPs or DIPs. ?No tenderness to palpation of these joints. Wrists: ?Full range of motion at the wrists without pain. ?No tenderness to palpation or synovitis noted to the wrists. Positive Phalens test on the right > left Elbows: Full range of motion without pain. No tenderness, weakness, swelling, increased warmth or erythema. Shoulders: Full range of motion without pain. No tenderness, weakness, swelling, increased warmth or erythema. Hips: Full range of motion without pain. Hip bursa: No tenderness to palpation Knees: ?Full range of motion. ?No tenderness, swelling, increased warmth or erythema.?Bilateral crepitations Ankles: Full range of motion. ?No tenderness, swelling, increased warmth or erythema.? Feet: ?Negative squeeze test. ?No tenderness to palpation or swelling of the MTPs. Tender points:?No tenderness to palpation of the bilateral trapezius, supraspinatus, greater trochanters, anterior costochondral junctions, bilateral gluteal areas, bilateral suboccipital muscle insertions SKIN Skin intact without rashes. Results Reviewed Results Reviewed: Laboratory Tests 04/24/24 07/31/24 11/16/24 11:17 10:31 11:45 WBC 8.0 RBC 4.38 Hgb 13.1 Hct 39.3 Plt Count 178 ESR 41 H 56 H 60 H Sodium 136 Potassium 4.5 D Chloride 100 Carbon Dioxide 28 BUN 37 H Creatinine 0.80 0.77 0.88 Estimated GFR > 60 > 60 > 60 AST 25 ALT 21 Alkaline Phosphatase 84 C-Reactive Protein 0.89 H 1.01 H 1.10 H Assessment & Plan Assessment & Plan (1) Rheumatoid arthritis: Comment: ++RF+++CCP Hydroxychloroquine started 2016, eye exam OK 03/03 scleritis 2017 Methotrexate added 04/01 Hydroxychloroquine stopped - ? Related to cardiomyopathy - 10/03 - eye exam OK Code(s): M06.9 - Rheumatoid arthritis, unspecified Category: Medical Qualifiers: Rheumatoid arthritis location: multiple sites Rheumatoid factor presence: with rheumatoid factor Qualified Code(s): M05.79 - Rheumatoid arthritis with rheumatoid factor of multiple sites without organ or systems involvement Plan: #Seropositive RA Patient with seropositive rheumatoid arthritis currently in remission. Patient currently taking 8 tablets of the methotrexate weekly. Her ESR and CRP continued to be elevated despite clinical remission. Discussed with the patient that sometimes the ESR and CRP remain elevated and that research has shown that aiming for a normal ESR and CRP has not shown better outcomes but has more risk of immunosuppression. Tolerating leucovorin weekly. Recommended splitting the methotrexate into 4 tablets in the morning and 4 tablets in the evening Plan - Continue Mtx 20mg weekly, split dosing - Leucovorin 5mg weekly fay after MTx - CBC, CMP, ESR, CRP prior to next visit - RTC 4-5 months (2) Carpal tunnel syndrome on both sides: Code(s): G56.03 - Carpal tunnel syndrome, bilateral upper limbs Category: Medical Plan: #Bilateral Carpal Tunnel Syndrome Patient complaining of numbness and tingling to bilateral hands, right worse than left, with associated pain. Exam and history consistent with bilateral carpal tunnel syndrome. Discuss treatment options for carpal tunnel syndrome including wrist splint, injections and surgery Patient is willing to try wrist splint for now Plan - Wrist splinting (3) Osteoarthritis of knees, bilateral: Code(s): M17.0 - Bilateral primary osteoarthritis of knee Category: Medical Qualifiers: Osteoarthritis type: primary Qualified Code(s): M17.0 - Bilateral primary osteoarthritis of knee Plan: #Bilateral knee osteoarthritis Patient complaining of knee pain more so on the left than the right. History and exam is consistent with osteoarthritis of the knees. Therapeutic options discussed with the patient including topical diclofenac gel, steroid injections, viscosupplementation, physical therapy, oral analgesics such as Celebrex. Patient would like to try topical diclofenac. Discussed that the gel could be placed up to 4 times a day. Information given about Visco supplementation. Plan - Topical diclofenac up to 4 times a day - XR knees (4) shelter current use of immunosuppressive drug: Code(s): Z79.899 - Other joint terminal attack controller (current) drug therapy Category: Medical Plan: #Long-term Current Use of Methotrexate Discussed with patient the benefits and risks of methotrexate for managing their rheumatic condition Benefits include reduced pain, reduced mortality, maintenance of remission and reduction of flares Risks include oral ulcers, photosensitivity, hepatotoxicity, hematologic toxicity, pneumonitis, flu-like symptoms (especially day after administration), nodulosis, lymphomas ? Limit alcohol and avoid Bactrim ? Monitoring: ?CBC, BMP, LFTs every 3-4 months and hepatitis serologies as needed Plan I spent 30 minutes reviewing the record and labs, taking a history, examining the patient, discussing the treatment plan and documenting in the medical record Coding Level of Care Code Est Pt Level 4 (62239) Complex EM visit Add On G2211 Diagnoses Rheumatoid arthritis involving multiple sites with positive rheumatoid factor M05.79 Rheumatoid arthritis location: multiple sites Rheumatoid factor presence: with rheumatoid factor Carpal tunnel syndrome on both sides G56.03 Primary osteoarthritis of both knees M17.0 Osteoarthritis type: primary intermediate 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
[2024-11-21 09:40] VITALS: BP 116/60; PULSE 70; O2SAT 99; BMI 37.1
== END 2024-11-21 10:18 | disposition home or self-care (01) ==
PROVIDERS: PCP Internal Medicine; Visit Provider Student in an Organized Health Care Education/Training Program
DX: M05.79 Rheumatoid arthritis with rheumatoid factor of multiple sites without organ or systems involvement (principal); G56.03 Carpal tunnel syndrome, bilateral upper limbs; M17.0 Bilateral primary osteoarthritis of knee; Z79.899 Other long term (current) drug therapy
CPT/HCPCS: 99214; G2211

== ENCOUNTER → 2024-11-21 09:32 | Outpatient (BNVA) | payer MEDICARE, OTHER, SELFPAY | PROVIDERS: PCP Internal Medicine; Visit Provider Student in an Organized Health Care Education/Training Program | DX: M05.79 Rheumatoid arthritis with rheumatoid factor of multiple sites without organ or systems involvement (principal); G56.03 Carpal tunnel syndrome, bilateral upper limbs; M17.0 Bilateral primary osteoarthritis of knee; I10 Essential (primary) hypertension; E78.5 Hyperlipidemia, unspecified; I50.9 Heart failure, unspecified; Z79.899 Other long term (current) drug therapy | CPT/HCPCS: 99212 ==

== ENCOUNTER 2025-03-15 08:37 | Outpatient (REF) | payer MEDICARE, OTHER, SELFPAY ==
--- NOTE | ~2025-03-15 | CT_ITS ---
CLINICAL HISTORY: Benign neoplasm of larynx hoareness,left vocal cord lesion CT soft tissue neck with contrast Comparison: None Findings: The visualized intracranial contents are unremarkable. Pharyngeal mucosal space, parapharyngeal fat, prevertebral tissues, and epiglottis are within normal limits. Salivary glands are unremarkable. No sialoliths. No suspicious thyroid nodules. No consolidation at the lung apices. No acute fracture or dislocation. IMPRESSION: No acute findings. This document has been electronically signed by: Brayan Lewis MD on 03/16/2025 08:49:41
--- OUTSIDE RECORDS SUMMARY | 2025-03-15 08:53 | XMS_ITS | Clinical Summary ---
Author Organization [address] Address [address] [place] [phone] Phone Care Team Providers Care [employer]er [employer] Material Name Role Phone Compa Rivera MD Primary Care Provider [phone] Allergies Active Allergy Reactions Criticality Noted Date Comments Amoxicillin-Pot Clavulanate Diarrhea 06/23/2024 Augmentin - Intolerance Medications furosemide (LASIX) 40 mg tablet TAKE 1+1/2 TABS IN THE MORNING AND TAKE 1 TABLET IN THE AFTERNOON. 024 Active sacubitriL-valsa rtan (Entresto) 24-26 mg per tablet Take 1 tablet by mouth 2 (two) times a day. 024 Active spironolactone (ALDACTONE) 25 mg tablet Take 1 tablet (25 mg total) by mouth 1 (one) time each day. 024 Active methotrexate 2.5 mg tablet Take 8 tablets (20 mg total) by mouth 1 (one) time per week 024 Active folic acid (FOLVITE) 1 mg tablet Take 1 tablet (1,000 mcg total) by mouth 1 (one) time each day. 023 Active empagliflozin (Jardiance) 10 mg tablet Take 1 tablet (10 mg total) by mouth 1 (one) time each day. 90 tablet 3 024 Active Trulicity 0.75 mg/0.5 mL pen injector injectionIndicat ions:Type 2 diabetes mellitus without complications (CMS/HCC V24, [facility] V28) INJECT 0.75 MG SUBCUTANEOUSLY ONE TIME PER WEEK 3 mL 5 024 Active cetirizine (ZyrTEC) 10 mg tablet TAKE 1 TABLET BY MOUTH EVERY DAY 90 tablet 1 024 Active atorvastatin (LIPITOR) 20 mg tablet TAKE 1 TABLET BY MOUTH EVERY DAY 90 tablet 1 025 Active carvediloL (COREG) 6.25 mg tablet TAKE 1 TABLET BY MOUTH TWICE A DAY WITH MEALS 180 tablet 1 025 Active carvediloL (COREG) 6.25 mg tablet Take 1 Tablet by mouth 2 times daily (with meals). 024 2024 Discontinued Active Problems Problem Noted Date Diagnosed Date Dysphagia 09/01/2024 Neck pain 09/01/2024 Rheumatoid arthritis ([facility] V24, [facility] V28) 09/01/2024 Assessment & Plan (01/04/2025 9:59 AM EST): Currently on methotrexate and folic acid. She is scheduled to undergo bone scan with rheumatology for knee pain. Shoulder pain 09/01/2024 Shortness of breath 10/21/2021 Overview (09/01/2024): Last Assessment & Plan: Patient reports increased shortness of breath with exertion. We will repeat ischemic work up with nuclear stress test. Osteoarthritis of glenohumeral joint, left 05/06 Hyperlipidemia 04/17/2021 Overview (09/01/2024): Last Assessment & Plan: Patient's last LDL cholesterol is 59. Goal is less than 70. Continue with atorvastatin 20 mg once a day as prescribed. Assessment & Plan (01/04/2025 9:59 AM EST): Follow low-cholesterol diet and continue atorvastatin. Orders: Lipid panel with reflex to direct LDL; Future Hypertension 04/17/2021 Overview (09/01/2024): Last Assessment & Plan: BP today 110/68. She is tolerating her medications and I will make no changes to them today. She will continue with spironolactone, carvedilol, furosemide and Entresto as prescribed. Assessment & Plan (01/04/2025 9:59 AM EST): Blood pressure is under control but she will keep a blood pressure log and provide to cardiology after 1 week. She will follow low-sodium diet. Type 2 diabetes mellitus wit hout complication, without long-term current use of insulin ([facility] V24, [facility] V28) 03/04/2021 Assessment & Plan (01/04/2025 9:59 AM EST): Diabetic diet discussed. Continue Jardiance and Trulicity. Orders: Hemoglobin A1c; Future Morbid obesity ([facility] V24, [facility] V28) 2018 Nonischemic cardiomyopathy ([facility] V24, [facility] V28) 05/02/2019 Overview (09/01/2024): CHF 04/2019 without recurrence. Cardiac cath was normal 05/02/2019, but LVEF was 20%, nonischemic cardiomyopathy. Was treated with Entresto and cardiac rehab. 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 On repeat echocardiogram 07/2019 she had mild global hypokinesis and LVEF was 45%. Last Assessment & Plan: Patient has history of nonischemic HFrEF-EF recovered to 50-55% on last echocardiogram with NYHA class III-IV symptoms. On physical examination today she appears euvolemic and reports that her symptoms have been well controlled. She is on maximum tolerated dose of Entresto. She is tolerating spironolactone, furosemide, carvedilol and Jardiance. I will make no changes to her present medical therapies. We will update an echocardiogram prior to her next office visit. Patient advised to seek emergency medical attention by calling 911 if they were to develop severe dyspnea, chest pain that did not resolve with rest or nitroglycerin, or if they were to faint. I've asked the patient to call if they develop worsening symptoms of heart failure such as increased shortness of breath, new or worsening cough, increased swelling in the legs or ankles, or weight gain of more than 2 pounds in one day or 4 pounds in one week. Assessment & Plan (01/04/2025 9:59 AM EST): Clinically she is euvolemic on exam. She followed up with cardiology. She will continue her current regimen of carvedilol, Jardiance, furosemide, Entresto, spironolactone, atorvastatin. 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 Romero, eye phys [place] Hoarseness of voice 08/08/2015 Overview (09/01/2024): Laryngscopy 02/2015: evidence of laryngeal edema without nodules. Videostroboscopy 04/2015 Reginal[facility]. Uterine fibroid 10/22/2014 Benign neoplasm of colon 06/07/2009 Overview (09/01/2024): Small polyp in the proximal bowel removed at colonoscopy 06/07/2009: Small lymphoid aggregate, no neoplastic polyp, next colonoscopy indicated 2018. Dizziness 05/10/2008 Overview (09/01/2024): Echo 01/20:normal ef. 10/24-mri head negative Seropositive rheumatoid arth ritis ([facility] V24, [facility] V28) 03/22/2006 Overview (09/01/2024): Low positive rheumatoid factor; positive CCP antibody Hydroxychloroquine started 2016, eye exam OK 03/03 scleritis 2017 Methotrexate added 04/01 Hydroxychloroquine stopped - ? Related to cardiomyopathy - 10/03 - eye exam OK Headache 11/19/2005 Encounters Date Type Department Care Team Description 01/04/2025 9:30 AM EST Clinical Support [facility] [address] [place] [phone] Encounter for subsequent annual wellness visit (AWV) in Medicare patient (Primary Dx) 01/04/2025 9:15 AM EST Office Visit Internal Medicine - [facility] [address] [place] [address] Compa Rivera MD Nonischemic cardiomyopathy ([facility] V24, [facility] V28) (Primary Dx); Type 2 diabetes mellitus with retinopathy, without long-term current use of insulin, macular edema presence unspecified, unspecified laterality, unspecified retinopathy sev* ([facility] V24, [facility] V28); Hypertension, unspecified type; Hyperlipidemia, unspecified hyperlipidemia type; Polyp of colon, unspecified part of colon, unspecified type; Raspy voice; Rheumatoid arthritis involving knee, unspecified laterality, unspecified whether rheumatoid factor present ([facility] V24, [facility] V28) from Last 3 Months Immunizations Name Administration Dates Next Due Influenza Quadravalent, MDCK , 0.5ml, preservative free (Flucelvax) 6mo and older 09/09/2021,08/20/2020 Influenza trivalent, 0.5mL ( Fluad) 65yo and older 07/28/2023 Influenza trivalent, 0.5mL, preservative free (Fluarix; FluLaval; Fluzone) ages 6mo and older (Afluria) 3 years and older 07/22/2022,08/04/2019,06/15/2018,2009 Moderna SARS-CoV-2 COVID-19, mRNA, LNP-S, preservative free 12/20/2020,11/19/2020 PPD Test 03/22/2023 Pneumococcal conjugate 20 va lent (Prevnar 20, PCV 20) 2mo and older 04/06/2023 TD, Adsorbed, Preservative Free 11/14/1998 Td Tetanus diptheria (Tdvax) 7yo and older 11/30/2019 Tdap Tetanus diptheria acell ular pertussis (Boostrix; Adacel) 7yo and older 05/13/2009 Zoster recombinant (Shingrix ) 19yo and older 11/17/2020,12/07/2019 Surgical History Surgery Date Site/Laterality Comments OTHER SURGICAL HISTORY 07/23/2010 PROCEDURE: WA SALPINGO-OOPHORECTOMY COMPL/PRTL UNI/BI SPX; COMMENT: Laparoscopic; performed by Dr. Crowe; dermoid cyst. COLONOSCOPY W/ BIOPSIES 06/07/2009 PROCEDURE: WA COLONOSCOPY W/BIOPSY SINGLE/MULTIPLE; COMMENT: Small proximal colonic polyp: Lymphoid aggregate, no neoplasia. CATARACT EXTRACTION 2018 Bilateral PROCEDURE: HISTORICAL CATARACT REMOVAL; COMMENT: OS Sept, OD Aug 2018 Dr Gu Medical History Medical History Date Comments Pain in joint, multiple sites 11/19/2005 DX :Pain in joint, multiple sites Unspecified inflammatory polyarthropathy 03/22/2006 DX:Unspecified inflammatory polyarthropathy; COMMENT: sero-positive Hoarseness of voice 08/08/2015 DX:Hoarsenes s of voice; COMMENT: Laryngscopy 02/2015: evidence of laryngeal edema without nodules. Videostroboscopy 04/2015 Reginald. 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 D X:Anterior scleritis of left eye Benign neoplasm of colon 06/07/2009 DX:Ymii gn neoplasm of colon Family history of autism 06/13/2018 DX:Fami ly history of autism Diabetes mellitus type 2, co ntrolled, with complications (CMS/HCC V24, CMS/HCC V28) DX:Diabetes mellitus type 2, controlled, with complications ([facility]) Family history of cardiovasc ular disease DX:Family history of cardiov ascular disease Dysphagia DX:Dysphagia Hoarseness of voice DX:Hoarsenes s of voice Neck pain DX:Neck pain Shoulder pain DX:Shoulder pain Rheumatoid arthritis (CMS/HC C V24, CMS/HCC V28) DX:Rheumatoid arthritis (HCC ) Chronic ischemic heart disease D X:Chronic ischemic heart disease Hyperlipidemia DX:Hyperlipidemi a Family History Medical History Relation Name Comments Diabetes Brother 1 age -70 di abetes complications No Known Problems Brother 3 No Known Problems Brother 4 Other: autism Daughter 1 Diabetes Father Heart attack Father suddenly a ge 56 Hypertension Father Arthritis Mother No Known Problems Sister 1 No Known Problems Sister 2 No Known Problems Sister 3 Breast cancer Neg Hx Colon cancer Neg Hx Ovarian cancer Neg Hx Relation Name Status Comments Brother 1 5,healthy Brother 2 Brother 3 Alive Brother 4 Alive Daughter 1 Alive Daughter 2 Alive Father (Age 56) Mother arthritis Sister 1 Alive 4,healthy Sister 2 Alive Sister 3 Alive Social History Tobacco Use Types Packs/Day Years Used Date Smoking Tobacco: Never Smokeless Tobacco: Never Tobacco Cessation:Counseling Given: Not Answered Alcohol Use Standard Drinks/Week Comments Not Currently 0 (1 standard drink = 0.6 oz pur e alcohol) Housing Instability Answer Date Recorde d Are you worried that in the next 2 months you may not have stable housing? No 01/04/2025 Food Access & Nutrition Answer Date Rec orded Do you have access to a vari ety of food including fruits and vegetables? Yes 01/04/2025 Health Literacy Answer Date Recorded How often do you need to hav e someone help you when you read instructions, pamphlets, or other written material from your doctor or pharmacy? Never 01/04/2025 Caregiver: How often do you need to have someone help you when you read instructions, pamphlets, or other written material from your doctor or pharmacy? Not on file 01/04/2025 Financial Risk Answer Date Recorded How hard is it for you to pa y for the very basics like food, housing, medical care, and air conditioning / heating? Not very hard 01/04/2025 Transportation Answer Date Recorded Has the lack of transportati on kept you from meetings, work, or from getting things needed for daily living? No Has the lack of transportati on kept you from medical appointments or from getting medications? No 01/04/2025 Social Isolation Answer Date Recorded How often do you feel lonely or isolated from th ose around you? Never 01/04/2025 Food Risk Answer Date Recorded Within the past 12 months we worried whether our food would run out before we got money to buy more. Never true 01/04/2025 Within the past 12 months th e food we bought just didn't last and we didn't have money to get more. Never true 01/04/2025 Dependent Care Answer Date Recorded Do you need help finding or paying for care for your loved ones. For example, teacher early childhood development or elderly care for an older adult? No 01/04/2025 Education Answer Date Recorded Do you think completing more education or training, like finishing a GED, going to college, or learning a trade, would be helpful for you? No 01/04/2025 Employment and Income Answer Date Recor ded During the last four weeks, have you been actively looking for work? No 01/04/2025 Living Situation Answer Date Recorded What is your living situation? 0 01/04/2025 Comments No Sex and Gender Information Value Date Recorded Sex Assigned at Not on file Legal Sex Female 8:17 PM EST Gender Identity Not on file Sexual Orientation Not on file Obstetrics History Para Term AB IAB SAB Ectopic Multiple Livin g Live Births 2 2 2 2 Date Outcome GA Total Labor Labor/2nd/3rd Weight Sex Type Anes PTL Alisia A1 A5 Name Clin Term Term Last Filed Vital Signs Vital Sign Reading Time Taken Comments Blood Pressure 100/60 01/04/2025 9:16 AM EST Pulse 74 01/04/2025 9:16 AM EST Temperature 36.3 ??C (97.3 ??F) 10/11/2024 3:43 PM ES T Respiratory Rate - - Oxygen Saturation 99% 10/11/2024 3:43 PM EST Inhaled Oxygen Concentration - - Weight 91.8 kg (202 lb 4.8 oz) 01/04/2025 9:16 A M EST Height 157.5 cm (5' 2 ) 01/04/2025 9:16 AM EST Body Mass Index 37 01/04/2025 9:16 AM EST Plan of Treatment Upcoming Encounters Date Type Department Care Team (Late st Contact Info) Description 04/03/2025 1:30 PM EDT Office Visit [facility] [address] [place] [phone] Jean-Pierre Liang MD [address] [place] [address] DRIVE [address] [place] [address] 04/10/2025 9:30 AM EDT Office Visit Endocrinology [address] [phone] Roxana Tomas PA [address] [place] [id number] 05/28/2025 9:30 AM EDT Office Visit Internal Medicine - [address] [phone] Compa Rivera MD [address] [place] [phone] Health Maintenance Due Date Last Done Comments Diabetes: Annual Foot Exam 1968 RSV Immunization Adult Patients (1 - Risk 60-74 years 1-dose series) 2018 COVID-19 Vaccine ( season) 2024 02/04/2023, 09/16/2021, 12/20/2020, Additional history exists Diabetes: Annual Retina Eye Exam 10/19/2024 10/19/2023 Diabetes: Annual Urine Albumin-Creatinine Ratio (uACR) 12/14/2024 12/14/2023 Diabetes: Blood Sugar Control Test (HGBA1C) 04/08/2025 10/09/2024, 04/13/2024, 04/13/2024 Influenza Vaccine (Season Ended) 2025 07/28/2023, 07/22/2022, 09/09/2021, Additional history exists Diabetes: Annual GFR (Glomerular Filtration Rate) 10/09/2025 10/09/2024, 04/13/2024, 04/13/2024 Hypertension/CHF/CAD Annual BMP Blood Test 10/09/2025 10/09/2024, 04/13/2024, 04/13/2024 Depression Screening 01/04/2026 01/04/2025, 12/14/19 Falls Risk Assessment 01/04/2026 01/04/2025, 024 Medicare Annual Wellness Visit 01/04/2026 01/04/2025 Social Influencers of Health Screening 01/04/2026 01/04/2025 Colorectal Cancer Screening: Colonoscopy 08/18/2026 08/18/2023 Breast Cancer Screening 11/14/2026 11/14/20 24, 11/02/2023, 10/20/2022, Additional history exists Cholesterol Screening (Lipid Panel) 10/09/2029 10/09/2024, 12/14/2023 DTaP,Tdap,and Td Vaccines (3 - Td or Tdap) 11/30/2029 11/30/2019, 05/13/2009, 11/14/1998 Osteoporosis Screening (Bone Density Screening) 07/20/2033 07/20/2023 Hepatitis C Screening Completed 03/22/2018 Zoster Vaccines Completed 11/17/2020, 12/07/2019 Pneumococcal Vaccine: 50+ Years Completed 04/06/2023 HIB Vaccines Aged Out No longer eligi ble based on patient's age to complete this topic HPV Vaccines Aged Out No longer eligi ble based on patient's age to complete this topic Hepatitis A Vaccines Aged Out No long er eligible based on patient's age to complete this topic Hepatitis B Vaccines Aged Out No long er eligible based on patient's age to complete this topic IPV Vaccines Aged Out No longer eligi ble based on patient's age to complete this topic MMR Vaccines Aged Out No longer eligi ble based on patient's age to complete this topic Meningococcal ACWY Vaccine Aged Out N o longer eligible based on patient's age to complete this topic Meningococcal B Vaccine Aged Out No l onger eligible based on patient's age to complete this topic RSV Immunization Patients Under 20 months Aged Out No longer eligible based on patient's age to complete this topic Varicella Vaccines Aged Out No longer eligible based on patient's age to complete this topic Procedures Procedure Name Priority Date/Time Associated Diagnosis Comments MG MAMMO DIGITAL SCREENING W MAHENDRA BILAT Routine 11/14/2024 9:45 AM EST Encounter for screening mammogram for breast cancer COMPREHENSIVE METABOLIC PANEL Routine 10/09/2024 12:13 PM EST Nonischemic cardiomyopathy (CMS/HCC V24, CMS/HCC V28) Primary hypertension Mixed hyperlipidemia HEMOGLOBIN A1C Routine 10/09/2024 12:13 PM EST Type 2 diabetes mellitus without complication, without long-term current use of insulin (CMS/HCC V24, CMS/HCC V28) LIPID PANEL WITH REFLEX TO DIRECT LDL Routine 10/09/2024 12:13 PM EST Nonischemic cardiomyopathy (CMS/HCC V24, CMS/HCC V28) Primary hypertension Mixed hyperlipidemia FALLS RISK ASSESSMENT Routine 04/13/2024 DEPRESSION SCREENING Routine 12/14/2023 URINE ALBUMIN CREATININE RATIO Routine 12/14/2023 DIABETES EYE EXAM Routine 10/19/2023 COLONOSCOPY Routine 08/18/2023 DXA BONE DENSITY STUDY 1+ SITS AXIAL SKEL Routine 07/20/2023 1:28 PM EDT Encounter for screening for osteoporosis HM HEPATITIS C SCREENING Routine 03/22/2018 from Last 3 Months or Most Recently Relevant to Health Maintenance Results * MG Mammo Digital Screening w Mahendra bilat (11/14/2024 9:45 AM EST) Anatomical Region Laterality Modality Breast Bilateral Mammography 11/16/2024 7:39 AM EST Impressions 11/16/2024 7:42 AM EST Stable and benign. BI-RADS CATEGORY: 1 - NEGATIVE RECOMMENDATION: Screening bilateral mammogram is recommended in 1 year. Screening bilateral mammogram is recommended in 1 year. -------- FINAL REPORT -------- Dictated By: Livia Miller Dictated Date: 11/16/2024 07:39 ET Assigned Physician: Livia Miller Reviewed and Electronically Signed By: Livia Miller Signed Date: 11/16/2024 07:42 ET Workstation ID: [id number] Transcribed By: Self Edit Transcribed Date: 11/16/2024 07:39 ET Narrative 11/16/2024 7:42 AM EST EXAMINATION TYPE: MG MAMMO DIGITAL SCREENING W MAHENDRA BILAT DATE OF EXAM ORDERED: 11/14/2024 9:36 AM COMPARISON: Mammograms dating back to 12/19/2019 with most recent of 11/02/2023 REASON FOR STUDY: ??Breast cancer screen, avg risk, asymptomatic (Age => 40y) TECHNIQUE: Bilateral mediolateral oblique and craniocaudal views ??were obtained digitally with 3-D mammogram (digital breast tomosynthesis) with CAD. Computer- aided detection was utilized in evaluation of this examination ([facility]; iCAD). FINDINGS: The breast tissue distribution pattern is unchanged. There is no suspicious mass, suspicious calcifications or suspicious architectural distortion. BREAST DENSITY: B - There are scattered areas of fibroglandular density. Procedure Note Livia Miller MD - 11/16/2024 EXAMINATION TYPE: MG MAMMO DIGITAL SCREENING W MAHENDRA BILAT DATE OF EXAM ORDERED: 11/14/2024 9:36 AM COMPARISON: Mammograms dating back to 12/19/2019 with most recent of11/02/2023 REASON FOR STUDY: Breast cancer screen, avg risk, asymptomatic (Age =>40y) TECHNIQUE: Bilateral mediolateral oblique and craniocaudal views wereobtained digitally with 3-D mammogram (digital breast tomosynthesis) withCAD. Computer- aided detection was utilized in evaluation of thisexamination ([employer]; iCAD). FINDINGS: The breast tissue distribution pattern is unchanged. There is nosuspicious mass, suspicious calcifications or suspicious architecturaldistortion. BREAST DENSITY: B - There are scattered areas of fibroglandular density. IMPRESSION: Stable and benign. BI-RADS CATEGORY: 1 - NEGATIVE RECOMMENDATION: Screening bilateral mammogram is recommended in 1 year. Screeningbilateral mammogram is recommended in 1 year. -------- FINAL REPORT -------- Dictated By: Livia Miller Dictated Date: 11/16/2024 07:39 ET Assigned Physician: Livia Miller Reviewed and Electronically Signed By: Livia Miller Signed Date: 11/16/2024 07:42 ET Workstation ID: [id number] Transcribed By: Self Edit Transcribed Date: 11/16/2024 07:39 ET us Compa Rivera MD IMG BI PROCEDURES Final R esult * Lipid panel with reflex to direct LDL (10/09/2024 12:13 PM EST) Cholesterol 143 0 - 200 mg/dL LAB CHEMISTRY METHOD 10/09/2024 6:31 PM EST [facility] Triglycerides 98 0 - 150 mg/dL LAB CHEMISTRY METHOD 10/09/2024 6:31 PM EST [facility] HDL 45 >=40 mg/dL LAB CHEMISTRY METHOD 10/09/2024 6:31 PM EST [facility] LDL Calculated 78 0 - 100 mg/dL LAB CHEMISTRY METHOD 10/09/2024 6:31 PM EST [facility] VLDL Cholesterol Jose 19.6 mg/dL LAB CHEMISTRY METHOD 10/09/2024 6:31 PM EST [facility] Non HDL Chol. (LDL+VLDL) 98 <145 mg/dL LAB CHEMISTRY METHOD 10/09/2024 6:[address] [facility] Chol/HDL Ratio 3.2 0.0 - 4.4 LAB CHEMISTRY METHOD 10/09/2024 6:31 PM EST [facility] Blood Venous blood specimen / Unknown Venipuncture / Unknown 10/09/2024 12:13 PM EST 10/09/2024 12:13 PM EST Jessica Moya [employer] LAB BLOOD ORDERABLES Final R esult Performing Organization Address City/[facility]/ZIP Co de Phone Number [facility] [address] [place] [address], [place] [phone] * Hemoglobin A1c (10/09/2024 12:13 PM EST) Hemoglobin A1C 5.6 <6.5 % LAB CHEMISTRY METHOD 10/09/2024 9:53 PM EST [facility] Mean Bld Glu Estim. 114 mg/dL LAB CHEMISTRY METHOD 10/09/2024 9:[address] [facility] Blood Venous blood specimen / Unknown Venipuncture / Unknown 10/09/2024 12:13 PM EST 10/09/2024 12:13 PM EST Roxana Tomas PA LAB BLOOD ORDERABLES Final Result [facility] [address] [place] [address], [place] [phone] * (ABNORMAL) Comprehensive metabolic panel (10/09/2024 12:13 PM EST) Sodium 137 133 - 145 mmol/L LAB CHEMISTRY METHOD 10/09/2024 6:[address] [facility] Potassium 3.8 3.5 - 5.5 mmol/L LAB CHEMISTRY METHOD 10/09/2024 6:[address] [facility] Chloride 101 96 - 110 mmol/L LAB CHEMISTRY METHOD 10/09/2024 6:[address] [facility] CO2 28 21 - 32 mmol/L LAB CHEMISTRY METHOD 10/09/2024 6:[address] [facility] Anion Gap 8 3 - 11 LAB CHEMISTRY METHOD 10/09/2024 6:[address] [facility] Glucose 108(H) 70 - 100 mg/dL LAB CHEMISTRY METHOD 10/09/2024 6:[address] [facility] BUN 20 5 - 25 mg/dL LAB CHEMISTRY METHOD 10/09/2024 6:[address] [facility] Creatinine 0.89 0.50 - 1.10 mg/dL LAB CHEMISTRY METHOD 10/09/2024 6:[address] [facility] eGFR 72 >=60 mL/min/1. 73m2 LAB CHEMISTRY METHOD 10/09/2024 6:[address] [facility] Comment:Calculation based on the??Chronic Kidney Disease Epidemiology Collaboration (CKD-EPI) equation refit??without adjustment for race. BUN/Creatinine Ratio 22.5 LAB CHEMISTRY METHOD 10/09/2024 6:[address] [facility] Calcium 9.6 8.5 - 10.5 mg/dL LAB CHEMISTRY METHOD 10/09/2024 6:[address] [facility] AST (SGOT) 18 10 - 42 unit/L LAB CHEMISTRY METHOD 10/09/2024 6:[address] [facility] ALT (SGPT) 20 10 - 60 unit/L LAB CHEMISTRY METHOD 10/09/2024 6:[address] [facility] Alkaline Phosphatase 90 42 - 121 unit/L LAB CHEMISTRY METHOD 10/09/2024 6:[address] [facility] Total Protein 7.2 6.0 - 8.0 g/dL LAB CHEMISTRY METHOD 10/09/2024 6:31 PM EST [facility] Albumin 3.5 3.2 - 5.0 g/dL LAB CHEMISTRY METHOD 10/09/2024 6:31 PM EST [facility] Total Bilirubin 0.6 0.0 - 1.4 mg/dL LAB CHEMISTRY METHOD 10/09/2024 6:31 PM EST [facility] Blood Venous blood specimen / Unknown Venipuncture / Unknown 10/09/2024 12:13 PM EST 10/09/2024 12:13 PM EST Result [facility] Jessica Moya SUPERVISOR TOY ASSEMBLY LAB BLOOD ORDERABLES Final R esult [facility] [address] [place] [address], * Falls Risk Assessment (04/13/2024) [facility] Falls Risk Assessment abstracted Result [facility] Provider HEALTH MAINTENANCE Final Result * Urine Albumin Creatinine Ratio (12/14/2023) [facility] Urine Albumin Creatinine Ratio abstracted Result [facility] Provider HEALTH MAINTENANCE Final Result * Depression Screening (12/14/2023) [facility] Depression Screening abstracted Result [facility] Provider HEALTH MAINTENANCE Final Result * Diabetes Eye Exam (10/19/2023) [facility] Diabetes: Annual Retina Eye Exam abstracted Result [facility] Provider HEALTH MAINTENANCE Final Result * Colonoscopy (08/18/2023) [facility] Colonoscopy no interpretation , abstracted Anatomical Region Laterality Modality Other Result [facility] Provider HEALTH MAINTENANCE Final Result * DXA BONE DENSITY STUDY 1+ SITS AXIAL SKEL (07/20/2023 1:28 PM EDT) Anatomical Region Laterality Modality Bone Densitometr y 04/06/2023 1:17 PM EDT Narrative 07/20/2023 5:56 PM EDT BONE DENSITY SCAN (DEXA) ? FINDINGS: Lumbar Spine T-score is 0.0. ?? (SD relative to 20-29 y/o adult) Z-score is 1.7. ??(SD relative to age matched peers) This is considered normal by WHO criteria. Left Hip T-score is 0.2. Z-score is 1.7. This is considered normal by WHO criteria. Comparison: None. IMPRESSION: IMPRESSION: Normal bone mineral density by WHO criteria. The [facility] Department of Internal Medicine recommends using National Osteoporosis Foundation (NOF) guidelines in treatment decisions related to osteoporosis. NOF guidelines suggest considering treatment for postmenopausal women and men aged 50 or older presenting with the following: History of hip or vertebral fracture. T-score = -2.5 (DXA) at the femoral neck, total hip, or spine, after appropriate evaluation to exclude secondary causes. Low bone mass (T-score between -1.0 and -2.5 at the femoral neck or spine) AND a 10-year probability of a hip fracture = 3% OR a 10-year probability of a major osteoporosis-related fracture = 20% based on the [place]-adapted WHO algorithm Please note that all treatment decisions require clinical judgment and consideration of individual patient factors, including patient preferences, co-morbidities, previous drug use, risk factors not captured in the FRAX model (e.g., frailty, falls, vitamin D deficiency, increased bone turnover, interval significant decline in bone density) and possible under- or over-estimation of fracture risk by FRAX. Optional alternative screening schedule based on ricardo Morfin., [facility] December 03, 2011 for patients with osteopenia (based on hip BMD T-score) is as follows: * ??advanced osteopenia (T scores -2.00 to -2.49), BMD testing every year * ??moderate osteopenia (T scores -1.50 to -1.99), BMD testing every 5 years mild osteopenia or normal BMD (T scores -1.50 and higher), BMD testing every 15 years Procedure Note Smita Ambriz MD - 12/20/2023 BONE DENSITY SCAN (DEXA) FINDINGS: Lumbar Spine T-score is 0.0. (SD relative to 20-29 y/o adult) Z-score is 1.7. (SD relative to age matched peers) This is considered normal by WHO criteria. Left Hip T-score is 0.2. Z-score is 1.7. This is considered normal by WHO criteria. Comparison: None. IMPRESSION: IMPRESSION: Normal bone mineral density by WHO criteria. The [facility] Department of Internal Medicine recommendsusing National Osteoporosis Foundation (NOF) guidelines in treatment decisions related toosteoporosis. NOF guidelines suggest considering treatment for postmenopausal women and menaged 50 or older presenting with the following: History of hip or vertebral fracture. T-score = -2.5 (DXA) at the femoral neck, total hip, or spine, afterappropriate evaluation to exclude secondary causes. Low bone mass (T-score between -1.0 and -2.5 at the femoral neck or spine)AND a 10-year probability of a hip fracture = 3% OR a 10-year probability of a majorosteoporosis-related fracture = 20% based on the [place]-adapted WHO algorithm Please note that all treatment decisions require clinical judgment andconsideration of individual patient factors, including patient preferences, co- morbidities,previous drug use, risk factors not captured in the FRAX model (e.g., frailty, falls, vitaminD deficiency, increased bone turnover, interval significant decline in bone density) andpossible under- or over-estimation of fracture risk by FRAX. Optional alternative screening schedule based on ricardo Morfin., NEJMJanuary 2011 for patients with osteopenia (based on hip BMD T-score) is as follows: * advanced osteopenia (T scores -2.00 to -2.49), BMD testing every year * moderate osteopenia (T scores -1.50 to -1.99), BMD testing every 5years mild osteopenia or normal BMD (T scores -1.50 and higher), BMD testingevery 15 years Compa Rivera MD IMG DXA PROCEDURES Final Result * Hepatitis C Screening (03/22/2018) Hepatitis C Screening abstracted us Historical Provider HEALTH MAINTENANCE Final Result from Last 3 Months or Most Recently Relevant to Health Maintenance Insurance MEDICARE [facility] Care Teams Sewer And Cutter Finger Buff Material Relationship Specialty Start Date End Date Compa Rivera MD [address] [place] [id number] PCP - General Internal Medicine 08/30/20
--- OUTSIDE RECORDS SUMMARY | 2025-03-15 08:53 | XMS_ITS | Clinical Summary ---
Author Organization [facility] Address [address] [place] [address] Care Team Providers Care Cattle Inspector Name Role Phone Unavailable Primary Care Provider Unavailabl e Source Comments PLEASE NOTE, if this patient is a minor, it may be UNLAWFUL to discuss sensitive information that is contained in these records (such as FAMILY PLANNING, MENTAL HEALTH or SUBSTANCE ABUSE) with the minor patient's parent or other person without the patient's specific authorization.[facility] Immunizations Immunization Administration Dates Next Due Flu, High Dose, 65y+, Fluzone High Dose 07/28/20 23 Flu, Preservative Free 07/22/2022 PPD 03/22/2023 Td(adult),2 Lf tetanus toxoid,preservative free 11/30/2019,11/14/1998 Social History Tobacco Use Types Packs/Day Years Used Date Smoking Tobacco: Never Assessed Social Connections Answer Date Recorded Connectedness 0 07/28/2024 Financial Resource Strain Answer Date R ecorded Financial Resource Strain 0 2021 Stress Answer Date Recorded Stress 0 04/27/2022 Physical Activity Answer Date Recorded Physical Activity 0 04/27/2022 Food Insecurity Answer Date Recorded Food 0 08/10/2024 Transportation Needs Answer Date Record ed Transportation 0 04/27/2022 Housing Stability Answer Date Recorded Housing 0 04/27/2022 Safety and Environment Answer Date Kyle rded Safety 0 04/27/2022 Utilities Answer Date Recorded Utilities 0 04/27/2022 Employment Answer Date Recorded Stress 0 07/28/2024 Comments Unknown Sex and Gender Information Value Date Recorded Sex Assigned at Not on file Legal Sex Female 5:43 AM PDT Gender Identity Not on file Sexual Orientation Not on file Plan of Treatment Health Maintenance Due Date Last Done Comments Diabetes Screening 1960 Hepatitis C Screening 1958 Lipid Screening 1958 Tobacco Screening 1958 Hypertension Screening (#1) 1976 Medicare Annual Wellness Visit 1976 Breast Cancer Screening (Mammogram) 1998 CT Colonography 2003 Colonoscopy 2003 Colorectal Cancer Screening 2003 FIT/gFOBT 2003 Fecal DNA 2003 Flexible Sigmoidoscopy 2003 Imm-Pneumococcal 65+ (1 of 1 - PCV) 2008 Bone Density Screening 2023 Falls Prevention 2023 [id number] ( season) 2024 02/04/2023, 09/16/2021, 12/20/2020, Additional history exists Imm-Influenza (#1) 2024 07/28/2023, 0 07/22/2022, 09/09/2021, Additional history exists Alcohol and Drug Screen 11/15/2024 Depression Annual Screen 11/15/2024 Imm-DTaP/Tdap/Td (3 - Td or Tdap) 11/30/2029 11/30/2019, 05/13/2009, 11/14/1998 Imm-Zoster, Recombinant Completed 11/17/2020, 12/07 Insurance [place]ICARE - [place] [employer] Member Subscriber Plan / Payer (Ef fective 2023-Present) Name:Elaina Vuna Relation to Subscriber:Self Name:Abbi Vu Payer ID:[id number] Group ID:Not on file Type:Indemnity Address: [facility] [id number] [place] [id number]
[2025-03-15] MEDS: iohexoL 350 MG/ML 100 ML INFUS..BTL IV (09:57)
== END 2025-03-15 08:38 | disposition home or self-care (01) ==
LOC: HO.CT 08:37
PROVIDERS: PCP Internal Medicine; Visit Provider Otolaryngology
DX: R49.0 Dysphonia (principal); D14.1 Benign neoplasm of larynx
CPT/HCPCS: 70491; Q9967

== ENCOUNTER → 2025-03-15 09:00 | Outpatient (BNV) | payer MEDICARE, OTHER, SELFPAY | PROVIDERS: PCP Internal Medicine; Visit Provider Specialist | DX: D14.1 Benign neoplasm of larynx (principal) | CPT/HCPCS: 70491 ==

== ENCOUNTER 2025-04-16 10:09 | Outpatient (REF) | payer MEDICARE, OTHER, SELFPAY ==
[2025-04-16 10:22] LABS: MANUAL DIFF FLAG NO
[2025-04-16 11:05] LABS: Basophils Percent Auto 0.3 % (0-2); Eosinophils Percent Auto 0.2 % (0-4); Hematocrit 37.8 % (37.0-47.0); Hemoglobin 12.1 g/dl (12.0-16.0); Imm Gran Abs Auto 0.02 X10*3/uL (0.00-0.03); Imm Gran Pct Auto 0.3 % (0.0-0.4); Lymphocytes Absolute Auto 1.5 X10*3/uL (1.2-4.9); Mean Corpuscular Hemoglobin 29.2 pg (27.0-33.0); Mean Corpuscular Volume 91.3 fL (80.0-98.0); Mean Platelet Volume 12.3 fL (9.4-12.3); Monocytes Absolute Auto 0.4 X10*3/uL (0.1-1.2); Monocytes Percent Auto 7.5 % (2-11); Neutrophils Absolute Auto 3.8 x10*3/uL (2.0-8.3); Neutrophils Percent Auto 65.7 % (45-73); Platelet Count 161 X10*3/uL (160-400); Red Blood Count 4.14 X10*6/uL (4.20-5.50); Red Cell Distribution Width 13.3 % (11.0-16.0); White Blood Count 5.8 X10*3/uL (4.8-10.8)
--- OUTSIDE RECORDS SUMMARY | 2025-04-16 11:05 | XMS_ITS | Clinical Summary ---
Author Organization [facility] Address [address] [address] Care Team Providers Care Face Painter Name Role Phone Unavailable Primary Care Provider [...] Bone Density Screening 2023 Falls Prevention 2023 [id number] ( season) 2024 02/04/2023, 09/16/2021, 12/20/2020, Additional history exists Alcohol and Drug Screen 11/15/2024 Depression Annual Screen 11/15/2024 Imm-Influenza (Season Ended) 2025, 07/22/2022, 09/09/2021, Additional history exists Imm-DTaP/Tdap/Td (3 - Td or Tdap) 11/30/2029 11/30/2019, 05/13/2009, 11/14/1998 Imm-Zoster, Recombinant Completed 11/17/2020, 12/07 Insurance [place]ICARE - [place] [employer] [employer] Member Subscriber Plan / Payer (Ef fective 2023-Present) Name:Elaina Vuna Relation to Subscriber:Self Name:Abbi Vu Payer ID:[id number] Group ID:Not on file Type:Indemnity Address: [facility] [id number] [place] [id number]
[2025-04-16 11:39] LABS: Erythrocyte Sedimentation Rate 46 MM/HR (0-20)
[2025-04-16 12:26] LABS: Alanine Aminotransferase 22 U/L (0-31); Albumin Level 3.5 g/dL (3.5-5.0); Alkaline Phosphatase 74 U/L (39-117); Anion Gap 9 (12-20); Aspartate Amino Transferase 27 U/L (5-31); Bilirubin Total 0.8 mg/dL (0.0-1.0); Blood Urea Nitrogen 17 mg/dL (9-16); C Reactive Protein 1.04 mg/dL (< or = 0.50); Calcium 8.9 mg/dL (8.4-10.2); Carbon Dioxide 29 mmol/L (22-29); Chloride 106 mmol/L (96-108); Estimated Glomerular Filt Rate > 60; Glucose Random 102 mg/dL (60-115); Sodium 140 mmol/L (135-145); Total Protein 6.8 g/dL (6.5-8.0)
[2025-04-20 15:23] LABS: Vitamin D 25-OH, D2 <4 ng/mL; Vitamin D 25-OH, D3 7 ng/mL; Vitamin D 25-OH, Total 7 ng/mL (30-100)
== END 2025-04-16 10:10 | disposition home or self-care (01) ==
LOC: HO.LAB 10:09
PROVIDERS: PCP Internal Medicine; Visit Provider Student in an Organized Health Care Education/Training Program
DX: M05.79 Rheumatoid arthritis with rheumatoid factor of multiple sites without organ or systems involvement (principal); M81.0 Age-related osteoporosis without current pathological fracture; E55.9 Vitamin D deficiency, unspecified
CPT/HCPCS: 36415; 80053; 82306; 85025; 85652; 86140

== ENCOUNTER 2025-04-18 08:45 | Outpatient (AMB) | payer MEDICARE, OTHER, SELFPAY ==
[2025-04-18 08:55] VITALS: BP 120/60; PULSE 75; O2SAT 99; BMI 36.0
--- NOTE | 2025-04-18 08:55 | MHC.OFFVIS ---
Vital Signs 04/18/25 08:55 Height 5 ft 2 in Weight 196 lb 10.437 oz BMI 36.0 BP 120/60 Blood Pressure Location Lt brachial Position Sitting Pulse 75 Pulse Source Pulse Oximeter Pulse Oximetry (%) 99 Oxygen Delivery Method Room Air Intake Visit Reasons: RA Intake Note: Patient presents for RA follow up and lab review today. Allergies No Known Allergies Allergy (Verified 04/18/25 08:58) Medication List - Last Reconciled 04/18/25 by Audra Moore MD atorvastatin 20 mg PO DAILY carvedilol 6.25 mg PO BID dulaglutide (Trulicity) mg subcut empagliflozin (Jardiance) 10 mg PO DAILY furosemide 40 mg PO DAILY leucovorin calcium 5 mg PO QWEEK methotrexate sodium 25 mg (10 x 2.5 mg) PO QWEEK sacubitril-valsartan 24-26 mg (Entresto) 1 tab PO BID spironolactone 25 mg PO DAILY HPI Comments Details: Patient is a 64-year-old female with hypertension, hyperlipidemia, heart failure with reduced ejection fraction who presents today for follow up of seropositive rheumatoid arthritis Interval History: Patient last seen 11/21/2024 with me. At that time she was following up for her rheumatoid arthritis on methotrexate 20 mg weekly and leucovorin 5 mg the day after methotrexate. Her main complaint at that time was left knee pain and numbness and tingling in her bilateral hands. There was no evidence of synovitis on examination and despite an elevated ESR and CRP she was determined to be in remission. Her knee OA and bilateral carpal tunnel was noted and topical diclofenac and wrist splinting were recommended respectively Today, Patient notes improvement to her knees and wrists. Did not use the topical diclofenac or the splints. Also did not get the DEXA or the knee XRs Doing well today Complaining of right 5th toe pain Rheumatologic History: Diagnosed with RA based on joint pain with synovitis and positive RF and CCP Hydroxychloroquine started 2016 scleritis 2017 Methotrexate added 04/01 Hydroxychloroquine stopped 2018 - ? Related to cardiomyopathy Current Rheumatology Medication(s): Methotrexate 20 mg once weekly Leucovorin 5mg once weekly (day after Mtx) [facility] Medical History (Updated 11/21/24 @ 10:22 by Audra Moore MD) Osteoarthritis of knees, bilateral Carpal tunnel syndrome on both sides Benign neoplasm of colon Nonischemic cardiomyopathy Type 2 diabetes mellitus Osteoarthritis of multiple joints Pain in joint, multiple sites Rheumatoid arthritis Dysphagia Hyperlipidemia Hypertension Surgical History Hx of colonoscopy History of salpingo-oophorectomy S/P cataract extraction Family History Father Myocardial infarction Diabetes Hypertension Mother Arthritis Daughter Autism Brother Diabetes Social History Household Members: Spouse Alcohol intake: current Alcohol intake frequency: holidays/special occasions only Patient Tobacco Use Status: Never used Tobacco Current occupational status: employed Review of Systems Const Details: Review of Systems Constitutional: Denies fever, chills, weight loss ENT: Denies vision changes, eye pain or eye redness, dental caries, dry mouth GI: Denies nausea, vomiting, diarrhea, abdominal pain, change in BM Pulm: Denies SOB, OWENS, hemoptysis, wheezing Cards: Denies chest pain, palpitations Skin: Denies Raynaud's, rash, nail changes, photosensitivity, SR. SOCIAL MEDIA & MOBILE MANAGER: Denies headaches, weakness, paresthesias, recurrent falls MSK: as per HPI All other systems reviewed and are unremarkable except noted above Physical Exam Vital Signs: Last Vital Signs Pulse 75 04/18/25 08:55 BP 120/60 04/18/25 08:55 Pulse Ox 99 04/18/25 08:55 Oxygen Delivery Method Room Air 04/18/25 08:55 BMI result Body Mass Index 36.0 Vital signs reviewed Physical Examination CONSTITUITIONAL Patient alert and cooperative. Well appearing and in no apparent painful distress HEENT Conjunctiva and sclera clear. ?No lymphadenopathy. ? CHEST/RESPIRATORY SYSTEM Normal respiratory effort and able to speak in complete sentences. ?Clear to auscultation bilaterally. ?No crackles, rales, rhonchi, wheezes heard. CARDIAC SYSTEM Regular rate and rhythm. ?S1 and S2 heard no murmurs. 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 No deformities noted. ?No synovitis noted to the MCPs, PIPs or DIPs. ?No tenderness to palpation of these joints. Wrists: ?Full range of motion at the wrists without pain. ?No tenderness to palpation or synovitis noted to the wrists. Elbows: Full range of motion without pain. No tenderness, weakness, swelling, increased warmth or erythema. Shoulders: Full range of motion without pain. No tenderness, weakness, swelling, increased warmth or erythema. Hips: Full range of motion without pain. Hip bursa: No tenderness to palpation Knees: ?Full range of motion. ?No tenderness, swelling, increased warmth or erythema.?Bilateral crepitations Ankles: Full range of motion. ?No tenderness, swelling, increased warmth or erythema.? Feet: ?Positive squeeze test on the right with tenderness to palpation of the right 5th MTP. It is squeeze test on the left Tender points:?No tenderness to palpation of the bilateral trapezius, supraspinatus, greater trochanters, anterior costochondral junctions, bilateral gluteal areas, bilateral suboccipital muscle insertions SKIN Skin intact without rashes. Results Reviewed Results Reviewed: Laboratory Tests 04/16/25 10:21 WBC 5.8 RBC 4.14 L Hgb 12.1 Hct 37.8 Plt Count 161 ESR 46 H Sodium 140 Potassium 4.0 Chloride 106 Carbon Dioxide 29 BUN 17 H Creatinine 0.69 AST 27 ALT 22 C-Reactive Protein 1.04 H 25-OH Vitamin D Total Pending Assessment & Plan Assessment & Plan (1) Rheumatoid arthritis: Comment: ++RF+++CCP Hydroxychloroquine started 2016, eye exam OK 03/03 scleritis 2018 Methotrexate added 04/01 Hydroxychloroquine stopped - ? Related to cardiomyopathy - 10/03 - eye exam OK Code(s): M06.9 - Rheumatoid arthritis, unspecified Category: Medical Qualifiers: Rheumatoid arthritis location: multiple sites Rheumatoid factor presence: with rheumatoid factor Qualified Code(s): M05.79 - Rheumatoid arthritis with rheumatoid factor of multiple sites without organ or systems involvement Plan: #Seropositive RA Patient with seropositive rheumatoid arthritis currently in remission. Patient currently taking 8 tablets of the methotrexate weekly. Her ESR and CRP continued to be elevated despite clinical remission, though they have improved slightly compared to last check. Tolerating leucovorin weekly. Plan - Continue Mtx 20mg weekly, split dosing - Leucovorin 5mg weekly fay after MTx - RTC 6 months - Labs before visit: CBC, CMP, ESR, CRP (2) Carpal tunnel syndrome on both sides: Code(s): G56.03 - Carpal tunnel syndrome, bilateral upper limbs Category: Medical Plan: #Bilateral Carpal Tunnel Syndrome Improved (3) Osteoarthritis of knees, bilateral: Code(s): M17.0 - Bilateral primary osteoarthritis of knee Category: Medical Qualifiers: Osteoarthritis type: primary Qualified Code(s): M17.0 - Bilateral primary osteoarthritis of knee Plan: #Bilateral knee osteoarthritis Knee pain improved Check XRs (4) Screening for osteoporosis: Code(s): Z13.820 - Encounter for screening for osteoporosis Plan: #Screening for osteoporosis Patient to get DEXA scan, same ordered Follow up vit D level (5) half-way current use of immunosuppressive drug: Code(s): Z79.899 - Other cell assembly pinner (current) drug therapy Category: Medical Plan: #Long-term Current Use of Methotrexate Discussed with patient the benefits and risks of methotrexate for managing their rheumatic condition Benefits include reduced pain, reduced mortality, maintenance of remission and reduction of flares Risks include oral ulcers, photosensitivity, hepatotoxicity, hematologic toxicity, pneumonitis, flu-like symptoms (especially day after administration), nodulosis, lymphomas ? Limit alcohol and avoid Bactrim ? Monitoring: ?CBC, BMP, LFTs every 3-4 months and hepatitis serologies as needed Plan I spent 30 minutes reviewing the record and labs, taking a history, examining the patient, discussing the treatment plan and documenting in the medical record Orders: Orders XR foot RT min 3V Today S92.353A - Displaced fracture of fifth metatarsal bone, unspecified foot, initial encounter for closed fracture XR DEXA axial skeleton Today M81.0 - Age-related osteoporosis without current pathological fracture Coding Level of Care Code Est Pt Level 4 (10632) Complex EM visit Add On G2211 Diagnoses Rheumatoid arthritis involving multiple sites with positive rheumatoid factor M05.79 Rheumatoid arthritis location: multiple sites Rheumatoid factor presence: with rheumatoid factor Carpal tunnel syndrome on both sides G56.03 Primary osteoarthritis of both knees M17.0 Osteoarthritis type: primary Screening for osteoporosis 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
== END 2025-04-18 09:38 | disposition home or self-care (01) ==
LOC: HO.RHE 08:48
PROVIDERS: PCP Internal Medicine; Visit Provider Student in an Organized Health Care Education/Training Program
DX: M05.79 Rheumatoid arthritis with rheumatoid factor of multiple sites without organ or systems involvement (principal); G56.03 Carpal tunnel syndrome, bilateral upper limbs; M17.0 Bilateral primary osteoarthritis of knee; Z13.820 Encounter for screening for osteoporosis; Z79.899 Other long term (current) drug therapy
CPT/HCPCS: 99214; G2211

== ENCOUNTER 2025-04-18 08:45 | Outpatient (REF) | payer MEDICARE, OTHER, SELFPAY ==
--- NOTE | ~2025-04-18 | XR_ITS ---
CLINICAL HISTORY: S92.353A - Displaced fracture of fifth metatarsal bone, unspecified foot... Three views of the right foot. COMPARISON: None FINDINGS: No ankle joint effusion. Atherosclerotic vascular calcifications. Small plantar calcaneal spur present. Normal tarsometatarsal alignment. Erosions present along the head of the 1st metatarsal, base of the 1st proximal phalanx and head of the 1st proximal phalanx. Well corticated ossification present along the lateral aspect of the head of the 5th metatarsal. There is resorption along the fracture margins. No definite callus formation identified. Phalanges appear intact. Interphalangeal joint space narrowing. IMPRESSION: 1. Mildly displaced fracture of the lateral aspect of the head of the 1st proximal phalanx. No significant bone bridging. 2. Erosions along the 1st MTP joint and along the head of the 1st proximal phalanx suggestive of an erosive arthropathy such as gout. 3. Plantar calcaneal spur. 4. Atherosclerotic vascular calcifications. This document has been electronically signed by: Madhav Pacheco MD on 04/18/2025 14:08:58
--- NOTE | ~2025-04-18 | XR_ITS ---
CLINICAL HISTORY: M17.0 - Bilateral primary osteoarthritis of knee Three views of the right and left knees. COMPARISON: None FINDINGS: Right knee: No right suprapatellar joint effusion. Patellar enthesophytes present. Atherosclerotic vascular calcifications. Joint spaces are maintained on the right. Osteophytes present along the patellofemoral compartment. Visualized portions of the right femur, patella, tibia and fibula appear intact. Left knee: No left suprapatellar joint effusion. Small patellar enthesophyte present. Atherosclerotic vascular calcifications. Mild medial joint space narrowing. Osteophytes present along the patellofemoral and medial compartments. Visualized portions of the left femur, patella, tibia and fibula appear intact. IMPRESSION: 1. No radiographic evidence of acute injury to the right and left knees. 2. Mild degenerative changes of the bilateral knees, [id number]. 3. Atherosclerotic vascular calcifications. This document has been electronically signed by: Madhav Pacheco MD on 04/18/2025 14:09:41
== END 2025-04-18 08:46 | disposition home or self-care (01) ==
LOC: HO.XRAY 08:45
PROVIDERS: PCP Internal Medicine; Visit Provider Student in an Organized Health Care Education/Training Program
DX: S92.353A Displaced fracture of fifth metatarsal bone, unspecified foot, initial encounter for closed fracture (principal); M05.79 Rheumatoid arthritis with rheumatoid factor of multiple sites without organ or systems involvement; G56.03 Carpal tunnel syndrome, bilateral upper limbs; M17.0 Bilateral primary osteoarthritis of knee; Z13.820 Encounter for screening for osteoporosis; Z79.899 Other long term (current) drug therapy
CPT/HCPCS: 73562; 73630; 99212

== ENCOUNTER → 2025-04-18 09:47 | Outpatient (BNV) | payer MEDICARE, OTHER, SELFPAY | PROVIDERS: PCP Internal Medicine; Visit Provider Radiology Diagnostic Radiology | DX: M17.0 Bilateral primary osteoarthritis of knee (principal); I25.84 Coronary atherosclerosis due to calcified coronary lesion; M77.31 Calcaneal spur, right foot | CPT/HCPCS: 73562; 73630 ==

== ENCOUNTER 2025-05-23 08:45 | Outpatient (REF) | payer MEDICARE, OTHER, SELFPAY ==
--- NOTE | ~2025-05-23 | MM_ITS ---
EXAMINATION: DXA BONE DENSITY AXIAL HISTORY: M81.0 - Age-related osteoporosis without current pathological fracture TECHNIQUE: Odimax Dual energy absorptiometry (DEXA) of the lumbar spine, total left hip, and femoral neck was performed. COMPARISON: There are no prior studies for comparison. FINDINGS: The bone mineral density of the lumbar spine is 1.174 g/cm2, corresponding to a T-score of -0.1, and a Z-score of 0.1. This is indicative of normal bone mineral density. The bone mineral density of the left total hip is 1.142 g/cm2, corresponding to a T-score of 1.1, and a Z-score of 0.8. This is indicative of normal bone mineral density. The bone mineral density of the left femoral neck is 0.908 g/cm2, corresponding to a T-score of -0.9, and a Z-score of -0.8. This is indicative of normal bone mineral density. FRACTURE RISK: The FRAX index suggests a risk of major osteoporotic fracture of 4.4%, and of hip fracture 0.4%. MM/XR DEXA axial skeleton IMPRESSION: Based on bone mineral density, and according to World Health Organization (WHO) criteria, the diagnosis is consistent with normal bone mineral density. Statistically, 68% of repeat scans fall within 1 SD (+/- 0.010 g/cm2 for AP spine L1-L4) and 1 SD (+/- 0.012 g/cm2 for femur total) FRAX is a trademark of the [employer]'s [employer] Metabolic Bone Disease, a World Health Organization (WHO) Collaborating Center. Electronically signed by: Salvatore Vincent MD 05/23/2025 09:13 AM EDT
--- OUTSIDE RECORDS SUMMARY | 2025-05-23 08:58 | XMS_ITS | Encounter Summary ---
Author Organization [facility] Address [address] [place] [address] Care Team Providers Care Machine Operator Cane Cutter Name Role Phone Compa Rivera MD Primary Care Provider [phone] Reason for Visit * Reason Comments Med Refill Encounter Details Date Type Department Care Team (Late st Contact Info) Description 05/19/2025 Telephone Internal Medicine - [place] [address] [phone] Salma Urbano NP [address] [place] [address] Med Refill Social History Tobacco Use Types Packs/Day Years Used Date Smoking Tobacco: Never Smokeless Tobacco: Never Alcohol Use Standard Drinks/Week Comments Not Currently [...] care for your loved ones. For example, director maternal child or elderly care for an older adult? [...] on file Sexual Orientation Not on file documented as of this encounter Progress Notes * Yolanda Fuentes RN - 05/22/2025 9:05 AM EDT spoke to pt-she denies requesting any antibiotic like augmentin and that she feels much better now after a bout of hoarse voice and an ear infection and was prescribed abts fr her manager dental office. * Lynn Benson RN - 05/21/2025 4:53 PM EDT Reached VM left message please re message to nursing triage * Thuy Barone - 05/21/2025 4:37 PM EDT Pt returned call, please call again when your available. Thank you * Melany Pollack LPN - 05/21/2025 4:27 PM EDT Left message on voicemail. Please re-message to Triage. * Carli Tavarez MA - 05/21/2025 2:44 PM EDT Pt is requesting a refill on Augmentin . Please triage Thank you documented in this encounter Plan of Treatment Upcoming Encounters Date Type Department Care Team (Late st Contact Info) Description 05/28/2025 9:30 AM EDT Office Visit Internal Medicine - [address] [phone] Compa Rivera MD [address] [place] [id number] 10/03/2025 11:10 AM EST Office Visit [facility] [address] [place] [address] [place] [address] Jessica Moya NP [address] [place] [address] [address] [place] [address] 10/16/2025 9:30 AM EST Office Visit Endocrinology [address] [phone] Roxana Tomas PA [address] [place] [address] 11/16/2025 10:10 AM EST Appointment Radiology Department [address] [phone] documented as of this encounter Visit Diagnoses Not on filedocumented in this encounter Additional Health Concerns Assessment Noted Time PHQ-9 Depression Total Score: 0 01/04/20 25 10:07 AM EST documented as of this encounter Care Teams Machine Operator Cane Cutter Relationship Specialty Start Date End Date Compa Rivera MD [address] [place] [address] PCP - General Internal Medicine 08/30/20 documented as of this encounter
--- OUTSIDE RECORDS SUMMARY | 2025-05-23 08:58 | XMS_ITS | Clinical Summary ---
Author Organization [facility] Address [address] [place] [address] Care Team Providers Care Motor And Controls Tester Name Role Phone Unavailable Primary Care Provider [...] 23 Flu, Preservative Free 07/22/2022 PPD 03/22/2023 Td (adult),2 Lf tetanus toxo id (TDVAX), preservative free 11/30/2019,11/14/1998 Social History Tobacco Use Types [...] Fecal DNA 2003 Flexible Sigmoidoscopy 2003 Imm-Pneumococcal 50+ (1 of 1 - PCV) 2008 Bone Density Screening 2023 Falls Prevention 2023 [id number] ( season) 2024 02/04/2023, 09/16/2021, 12/20/2020, Additional history exists Alcohol and Drug Screen 11/15/2024 Depression Annual Screen 11/15/2024 Imm-Influenza (Season Ended) 2025, 07/22/2022, 09/09/2021, Additional history exists Imm-DTaP/Tdap/Td (3 - Td or Tdap) 11/30/2029 11/30/2019, 05/13/2009, 11/14/1998 Imm-Zoster, Recombinant Completed 11/17/2020, 12/07 Insurance MEDICARE - [facility]
== END 2025-05-23 08:46 | disposition home or self-care (01) ==
LOC: HO.MAMMO 08:45
PROVIDERS: PCP Internal Medicine; Visit Provider Student in an Organized Health Care Education/Training Program
DX: M81.0 Age-related osteoporosis without current pathological fracture (principal)
CPT/HCPCS: 77080

== ENCOUNTER → 2025-05-23 09:15 | Outpatient (BNV) | payer MEDICARE, OTHER, SELFPAY | PROVIDERS: PCP Internal Medicine; Visit Provider Radiology Diagnostic Radiology | DX: E28.39 Other primary ovarian failure (principal) | CPT/HCPCS: 77080 ==

== ENCOUNTER 2025-10-16 10:56 | Outpatient (REF) | payer MEDICARE, OTHER, SELFPAY ==
--- OUTSIDE RECORDS SUMMARY | 2025-10-16 09:30 | XMS_ITS | Encounter Summary ---
Author Organization [facility] Address [address] [place] [address] Care Team Providers Care Senior Foreman Name Role Phone Jodi Campbell MD Primary Care Provider [phone] Reason for Visit * Reason Comments Diabetes Mellitus 6 month Encounter Details Date Type Department Care Team (Late st Contact Info) Description 10/16/2025 9:30 AM EST Office Visit Endocrinology - [address] [phone] Roxana Tomas PA [address] [place] [address] Type 2 diabetes mellitus without complication, without long-term current use of insulin (CMS/HCC V24, CMS/HCC V28) (Primary Dx) Social History Tobacco Use Types Packs/Day Years [...] care for your loved ones. For example, child day care center worker or elderly care for an older adult? [...] Date Recorded What is your living situation? Unrecognized valu e 01/04/2025 Comments No Sex and Gender Information Value Date Recorded Sex Assigned at Not on file Legal Sex Female 8:17 PM EST Gender Identity Not on file Sexual Orientation Not on file documented as of this encounter Last Filed Vital Signs Vital Sign Reading Time Taken Comments Blood Pressure 99/59 10/16/2025 10:05 AM EST Pulse 81 10/16/2025 9:36 AM EST Temperature 36 C (96.8 F) 10/16/2025 9:36 AM EST Respiratory Rate - - Oxygen Saturation - - Inhaled Oxygen Concentration - - Weight 92.7 kg (204 lb 6.4 oz) 10/16/2025 9:36 A M EST Height 157.5 cm (5' 2 ) 10/16/2025 9:36 AM EST Body Mass Index 37.39 10/16/2025 9:36 AM EST documented in this encounter Ordered Prescriptions Prescription Sig Dispense Quantity Refills Last Filled Start Date End Date empagliflozin (Jardiance) 10 mg tablet Take 1 tablet (10 mg total) by mouth 1 (one) time each day. 90 tablet 3 10/16/2025 documented in this encounter Progress Notes * Brittney Biggs MA - 10/16/2025 9:30 AM EST Visit Vitals BP (!) 91/48 (BP Location: Left arm, Patient Position: Sitting, BP Cuff Size: Large adult) Pulse 81 Temp 36 ??C (96.8 ??F) (Temporal) Ht 1.575 m (62 ) Wt 92.7 kg (204 lb 6.4 oz) BMI 37.39 kg/m?? OB Status Postmenopausal Smoking Status Never BSA 1.93 m?? If blood pressure is greater than 140/90 was average BP completed? yes Medication list reviewed and refills pended: Yes Blood sugar: FSBS: Lab Results Component Value Date GLUCOSE 94 10/16/2025 . Is sugar <70 or > 400? No. Is patient on CGM? No. .If yes, please update blue sticky note with DME or pharmacy information. Are labs up to date? no Foot Exam Due: yes Eye Exam Due: no * MILAGROS Smith - 10/16/2025 9:30 AM EST CHIEF COMPLAINT: Diabetes Mellitus (6 month) IDENTIFIER: Abbi Vu is a 65 y.o. old female. HPI: Patient presents to the office for follow-up on diabetes. Patient with type 2 diabetes, rheumatoid arthritis, osteoarthritis, cardiomyopathy, obesity, hypertension, hyperlipidemia. Type 2 diabetes: Hemoglobin A1c: Lab Results Component Value Date HGBA1C 6.3 05/25/2025 HGBA1C 5.6 10/09/2024 HGBA1C 6.1 04/13/2024 Patient does not check her blood sugars. Blood sugar in the office 94 Diabetic medication: Jardiance 10 mg Trulicity 0.75 mcg He denies any side effects to above medication. Up-to-date with eye exam and foot exam. She does mention she scraped her right foot. She shows me her foot. No signs of an infection. Wound appears to be healing well. Microalbuminuria test normal Hypertension: Blood pressure 99/59 on carvedilol 6.25 Mg 1 tablet twice a day, Lasix 60 Mg in the morning and 40 Mg in the evening, spironolactone 25 mg, Entresto 24-26 twice a day Hyperlipidemia:on Lipitor 20 mg. Last LDL 92. Wt Readings from Last 3 Encounters: 10/16/25 92.7 kg (204 lb 6.4 oz) 10/03/25 92.2 kg (203 lb 3.2 oz) 10/01/25 93.1 kg (205 lb 4.8 oz) ROS: GENERAL: No malaise, significant weight loss or fever HEENT: No changes in hearing or vision, nose bleeds or other nasal problems RESPIRATORY: No cough, wheezing or shortness of breath CARDIOVASCULAR: No chest pain, leg swelling or palpitations GI: No abdominal discomfort, blood in stools or black stools ENDOCRINE: See HPI MUSCULOSKELETAL: No joint pain or swelling, back pain, or muscle pain. NEURO: No persistent headache, syncope, seizures, weakness or numbness PAST MEDICAL HISTORY: Patient Active Problem List Diagnosis Date Noted Ear infection 04/03/2025 Dysphagia 09/01/2024 Neck pain 09/01/2024 Rhe[place]oid [place] [place] [facility] V28) 09/01/2024 Shoulder pain 09/01/2024 Osteoarthritis of glenohumeral joint, left 05/06/2021 Hyperlipidemia 04/17/2021 Hypertension 04/17/2021 Type 2 diabetes mellitus without complication, without long-term current use of insulin ([facility] V24, [facility] V28) 03/04/2021 Morbid obesity [place] [place], [facility] V28) 05/05/2019 Nonischemic cardiomyopathy ([facility] V24, [facility] V28) 05/02/2019 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 Hoarseness of voice 08/08/2015 Uterine fibroid 10/22/2014 Benign neoplasm of colon 06/07/2009 Seropositive rheumatoid arthritis ([facility] V24, [facility] V28) 03/22/2006 Headache 11/19/2005 SOCIAL HISTORY: Social History Tobacco Use Smoking status: Never Smokeless tobacco: Never Substance Use Topics Alcohol use: Not Currently FAMILY HISTORY: Family Status Relation Name Status Mother arthritis Father at age 56 Sister Alive 4,healthy Sister Alive Sister Alive Brother 5,healthy Brother Brother Alive Brother Alive Daughter Alive Daughter Alive Neg Hx (Not Specified) No partnership data on file Family History Problem Relation Name Age of Onset Arthritis Mother Heart attack Father suddenly age 56 Diabetes Father Hypertension Father No Known Problems Sister No Known Problems Sister No Known Problems Sister Diabetes Brother age -70 diabetes complications No Known Problems Brother No Known Problems Brother Other (Other: autism) Daughter Breast cancer Neg Hx Colon cancer Neg Hx Ovarian cancer Neg Hx ACTIVE MEDICATIONS: Outpatient Medications Marked as Taking for the 10/16/25 encounter (Office Visit) with MILAGROS Smith Medication Sig Dispense Refill atorvastatin (LIPITOR) 20 mg tablet TAKE 1 TABLET BY MOUTH EVERY DAY 90 tablet 1 carvediloL (COREG) 6.25 mg tablet TAKE 1 TABLET BY MOUTH TWICE A DAY WITH MEALS 180 tablet 1 cetirizine (ZyrTEC) 10 mg tablet Take 1 tablet (10 mg total) by mouth 1 (one) time each day. 90 tablet 1 cholecalciferol (VITAMIN D-3) 1,250 mcg (50,000 unit) capsule Take 1 capsule (50,000 Units total) by mouth 1 (one) time per week. dulaglutide (Trulicity) 0.75 mg/0.5 mL pen injector injection INJECT 0.75 MG SUBCUTANEOUSLY ONE TIME PER WEEK 9 mL 3 empagliflozin (Jardiance) 10 mg tablet Take 1 tablet (10 mg total) by mouth 1 (one) time each day. 90 tablet 3 Entresto 24-26 mg per tablet TAKE 1 TABLET BY MOUTH TWICE A DAY 180 tablet 2 folic acid (FOLVITE) 1 mg tablet Take 1 tablet (1,000 mcg total) by mouth 1 (one) time each day. furosemide (LASIX) 40 mg tablet TAKE 1+1/2 TABS IN THE MORNING AND TAKE 1 TABLET IN THE AFTERNOON. 225 tablet 1 methotrexate 2.5 mg tablet Take 8 tablets (20 mg total) by mouth 1 (one) time per week spironolactone (ALDACTONE) 25 mg tablet TAKE 1 TABLET BY MOUTH EVERY DAY 90 tablet 1 [DISCONTINUED] empagliflozin (Jardiance) 10 mg tablet Take 1 tablet (10 mg total) by mouth 1 (one) time each day. 90 tablet 3 ALLERGIES: Amoxicillin-pot clavulanate PHYSICAL EXAM: Blood pressure 99/59, pulse 81, temperature 36 ??C (96.8 ??F), temperature source Temporal, height 1.575 m (62 ), weight 92.7 kg (204 lb 6.4 oz). Body mass index is 37.39 kg/m??. BMI is greater than 25.0 (above the normal range) - see Plan APPEARANCE: Alert and in no acute distress HEART: RRR with normal S1 and S2, no murmurs, no gallops, NECK: no thyroid enlargement, nodules or masses felt. LUNG: clear to auscultation NEURO: Awake, alert and oriented x 3 LABS: Lab Results Component Value Date HGBA1C 6.3 05/25/2025 CHOL 162 05/25/2025 LDL 87 12/14/2023 HDL 48 05/25/2025 TRIG 108 05/25/2025 Lab Results Component Value Date GLUCOSE 94 10/16/2025 No results found for: TSH IMAGING: IMPRESSION: 1. Type 2 diabetes mellitus without complication, without long-term current use of insulin ([facility] V28) PLAN: Patient presents to the office for follow-up on diabetes 1. Diabetes: Last A1c at goal Due for lab work Continue current medication regimen Continue lifestyle modifications Jarlaurenance refilled Myself and my colleagues maintained a long-term, longitudinal relationship with this patient, overseeing care of chronic conditions including diabetes, . This care relationship has significantly influence my decision making and treatment plans during today's encounter. All questions and concerns were addressed. Patient understands and agrees with this treatment plan.Patient was reminded to call or return to the office if any new or existing problems arise This document was made using voice recognition software. It may contain some errors in grammar or syntax Medication and lab orders: Type 2 diabetes mellitus without complication, without long-term current use of insulin ([facility] V24, [facility] V28) (Primary) - POC glucose manually resulted - Hemoglobin A1c; Future Other orders - empagliflozin (Jardiance) 10 mg tablet; Take 1 tablet (10 mg total) by mouth 1 (one) time each day. Dispense: 90 tablet; Refill: 3 MILAGROS Smith on 10/16/2025 at 10:06 AM EST documented in this encounter Plan of Treatment Upcoming Encounters Date Type Department Care Team (Late st Contact Info) Description 11/16/2025 10:10 AM EST Appointment Radiology Department - [address] [phone] 04/01/2026 10:45 AM EDT Office Visit Internal Medicine - [address] [phone] Mónica Almanzar NP [address] [place] [phone] 04/02/2026 10:00 AM EDT Ancillary Procedure [facility] - [address] [place] [address] 05/01/2026 9:30 AM EDT Office Visit Endocrinology - [address] [phone] Roxana Tomas PA [address] [place] [phone] Scheduled Orders Name Type Priority Associated Diagnoses Orde r Schedule Hemoglobin A1c Lab Routine Type 2 diabetes mellitus without complication, without long-term current use of insulin (CMS/[facility] V24, CMS/[facility] V28) 1 Occurrences starting 10/16/2025 until 10/16/2026 documented as of this encounter Procedures Procedure Name Priority Date/Time Associated Diagnosis Comments POC GLUCOSE Routine 10/16/2025 9:44 AM EST Type 2 diabetes mellitus without complication, without long-term current use of insulin (CMS/HCC V24, CMS/HCC V28) documented in this encounter Results * POC glucose manually resulted (10/16/2025 9:44 AM EST) Glucose POC 94 mg/dL Blood Capillary blood specimen / Unknown 10/16/2025 9:44 AM EST Roxana LINARES POINT OF CARE TEST ENTER/ED IT ORDERABLES Final Result documented in this encounter Visit Diagnoses Diagnosis Type 2 diabetes mellitus without complication, without long-term current use of insulin ([facility] V24, [facility] V28)- Primary documented in this encounter Discontinued Medications Medication Sig Discontinue Reason Start Date End Da te empagliflozin (Jardiance) 10 mg tablet Take 1 tablet (10 mg total) by mouth 1 (one) time each day. Reorder 10/11/2024 10/16/2025 documented as of this encounter Additional Health Concerns Assessment Noted Time PHQ-9 Depression Total Score: 0 10/01/20 9:55 AM EST documented as of this encounter Care Teams Senior Foreman Relationship Specialty Start Date End Date Jodi Campbell MD [address] [place] [address] [place] [phone] PCP - General Internal Medicine 09/26/25 documented as of this encounter
--- OUTSIDE RECORDS SUMMARY | 2025-10-16 12:57 | XMS_ITS | Clinical Summary ---
Author Organization [address] Address [address] [place] [phone] Phone Care Team Providers Care Die Attaching Machine Tender Name Role Phone Jodi Campbell MD Primary Care Provider [phone] Allergies Active Allergy Reactions Criticality Noted Date Comments Amoxicillin-Pot Clavulanate Diarrhea 06/23/2024 Augmentin - Intolerance Medications methotrexate 2.5 mg tablet Take 8 tablets (20 mg total) by mouth 1 (one) time per week 02/08/20 24 Active folic acid (FOLVITE) 1 mg tablet Take 1 tablet (1,000 mcg total) by mouth 1 (one) time each day. 04/29/20 23 Active atorvastatin (LIPITOR) 20 mg tablet TAKE 1 TABLET BY MOUTH EVERY DAY 90 tablet 1 02/08/20 25 Active carvediloL (COREG) 6.25 mg tablet TAKE 1 TABLET BY MOUTH TWICE A DAY WITH MEALS 180 tablet 1 03/15/20 25 Active Entresto 24-26 mg per tablet TAKE 1 TABLET BY MOUTH TWICE A DAY 180 tablet 2 04/02/20 25 Active spironolactone (ALDACTONE) 25 mg tabletIndication s:Hypo-osmolalit y and hyponatremia TAKE 1 TABLET BY MOUTH EVERY DAY 90 tablet 1 04/02/20 25 Active dulaglutide (Trulicity) 0.75 mg/0.5 mL pen injector injectionIndicat ions:Type 2 diabetes mellitus without complication, without long-term current use of insulin ([facility] V24, CMS/HCC V28) INJECT 0.75 MG SUBCUTANEOUSLY ONE TIME PER WEEK 9 mL 3 04/10/20 25 Active cholecalciferol (VITAMIN D-3) 1,250 mcg (50,000 unit) capsule Take 1 capsule (50,000 Units total) by mouth 1 (one) time per week. 04/24/20 25 Active cetirizine (ZyrTEC) 10 mg tablet Take 1 tablet (10 mg total) by mouth 1 (one) time each day. 90 tablet 1 05/28/20 25 Active furosemide (LASIX) 40 mg tablet TAKE 1+1/2 TABS IN THE MORNING AND TAKE 1 TABLET IN THE AFTERNOON. 225 tablet 1 06/27/20 25 Active empagliflozin (Jardiance) 10 mg tablet Take 1 tablet (10 mg total) by mouth 1 (one) time each day. 90 tablet 3 10/16/20 25 Active empagliflozin (Jardiance) 10 mg tablet Take 1 tablet (10 mg total) by mouth 1 (one) time each day. 90 tablet 3 10/11/20 24 025 Discontin ued(Reord er) metFORMIN XR (GLUCOPHAGE-XR) 500 mg 24 hr tablet Take 1 tablet (500 mg total) by mouth 1 (one) time each day. 05/19/20 25 025 Discontin ued(Thera py completed ) Active Problems Problem Noted Date Diagnosed Date Ear infection 04/03/2025 Assessment & Plan (04/03/2025 5:00 PM EDT): Patient will be started on Zithromax which she had to be started on back in August the last time she had an ear infection. The topical drops are not clearing it and she is uncomfortable before she develops a fever or systemic infection we will give her a course of Z-Gerardo. Orders: azithromycin (ZITHROMAX) 250 mg tablet; Take 2 tablets (500 mg total) by mouth 1 (one) time each day for 1 day, THEN 1 tablet (250 mg total) 1 (one) time each day for 4 days. Dysphagia 09/01/2024 Neck pain 09/01/2024 Rheumatoid arthritis ([facility] V24, [facility] V28) 09/01/2024 Assessment & Plan (01/04/2025 9:59 AM EST): Currently on methotrexate and folic acid. She is scheduled to undergo bone scan with rheumatology for knee pain. Shoulder pain 09/01/2024 Osteoarthritis of glenohumeral joint, left 05/06 Hyperlipidemia 04/17/2021 Overview (09/01/2024): Last Assessment & Plan: Patient's last LDL cholesterol is 59. Goal is less than 70. Continue with atorvastatin 20 mg once a day as prescribed. Assessment & Plan (10/03/2025 12:14 PM EST): Continue with statin as prescribed. Assessment & Plan (05/28/2025 10:14 AM EDT): Follow low-cholesterol diet. Continue atorvastatin. Assessment & Plan (01/04/2025 9:59 AM EST): Follow low-cholesterol diet and continue atorvastatin. Orders: Lipid panel with reflex to direct LDL; Future Hypertension 04/17/2021 Overview (09/01/2024): Last Assessment & Plan: BP today 110/68. She is tolerating her medications and I will make no changes to them today. She will continue with spironolactone, carvedilol, furosemide and Entresto as prescribed. Assessment & Plan (10/03/2025 12:14 PM EST): Patient is well pressure under excellent control with a reading today of 120/60. No changes to her medical therapies at this time. Assessment & Plan (05/28/2025 10:14 AM EDT): Stable. Follow sodium diet. Continue current of carvedilol, Entresto, furosemide, spironolactone. Assessment & Plan (01/04/2025 9:59 AM EST): Blood pressure is under control but she will keep a blood pressure log and provide to cardiology after 1 week. She will follow low-sodium diet. Type 2 diabetes mellitus wit hout complication, without long-term current use of insulin ([facility] V24, [facility] V28) 03/04/2021 Assessment & Plan (01/04/2025 9:59 AM EST): Diabetic diet discussed. Continue Jardiance and Trulicity. Orders: Hemoglobin A1c; Future Morbid obesity ([facility] V24, [facility] V28) 2018 Nonischemic cardiomyopathy ([facility] V24, [facility] V28) 05/02/2019 Overview (09/01/2024): CHF 04/2019 without recurrence. Cardiac cath was normal 05/02/2019, but LVEF was 20%, nonischemic cardiomyopathy. Was treated with Entresto and cardiac rehab. Call Center Trainer is Dr. Brumfield at [facility]. On repeat echocardiogram 07/2019 she had [...] pounds in one week. Assessment & Plan (10/03/2025 12:14 PM EST): Patient has history of nonischemic HFrEF-EF recovered to 50-55% on last echocardiogram with NYHA class III-IV symptoms. On physical examination today she appears euvolemic and reports that her symptoms have been well controlled. She is on maximum tolerated dose of Entresto. She is tolerating spironolactone, furosemide, carvedilol and Jardiance. I will make no changes to her present medical therapies. Patient advised to seek emergency medical attention [...] pounds in one week. Assessment & Plan (04/03/2025 5:00 PM EDT): Patient with history of nonischemic cardiomyopathy with guideline directed therapy in place with good correction of ejection fraction. Will continue guideline directed therapy Orders: ECG 12 lead Assessment & Plan (01/04/2025 9:59 AM EST): Clinically she is euvolemic on exam. She followed up with cardiology. She will continue her current regimen of carvedilol, Jardiance, furosemide, Entresto, spironolactone, atorvastatin. 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 Romero, eye [facility] Hoarseness of voice 08/08/2015 Overview (09/01/2024): Laryngscopy 02/2015: evidence of laryngeal edema without nodules. Videostroboscopy 04/2015 Reginald. Assessment & Plan (05/28/2025 10:14 AM EDT): I have placed referral to ENT to follow-up on her voice hoarseness/raspy voice. This could be related to postnasal drip. I have ordered a prescription for cetrizine to see if her symptoms improves. Vies her do warm salt water gargling. Orders: Ambulatory referral to ENT; Future Uterine fibroid 10/22/2014 Benign neoplasm of colon 06/07/2009 Overview (09/01/2024): Small polyp in the proximal bowel removed at colonoscopy 06/07/2009: Small lymphoid aggregate, no neoplastic polyp, next colonoscopy indicated 2018. Seropositive rheumatoid arth ritis ([facility] V24, [facility] V28) 03/22/2006 Overview (09/01/2024): Low positive rheumatoid factor; positive CCP antibody Hydroxychloroquine started 2016, eye exam OK 03/03 scleritis 2017 Methotrexate added 04/01 Hydroxychloroquine stopped - ? Related to cardiomyopathy - 10/03 - eye exam OK Headache 11/19/2005 Resolved Problems Problem Noted Date Diagnosed Date Resolved Date Shortness of breath 10/21/2021 10/03/20 25 Overview (09/01/2024): Last Assessment & Plan: Patient reports increased shortness of breath with exertion. We will repeat ischemic work up with nuclear stress test. Dizziness 05/10/2008 10/03/2025 Overview (09/01/2024): Echo 01/20:normal ef. 10/24-mri head negative Encounters Date Type Department Care Team Description 10/16/2025 9:30 AM EST Office Visit Endocrinology [address] [phone] Roxana Tomas PA Type 2 diabetes mellitus without complication, without long-term current use of insulin ([facility] V24, [facility] V28) (Primary Dx) 10/03/2025 11:10 AM EST Office Visit [facility] [address] [place] [address] Jessica Moya NP Nonischemic cardiomyopathy ([facility] V24, [facility] V28) (Primary Dx); Primary hypertension; Hyperlipidemia, unspecified hyperlipidemia type 10/01/2025 10:00 AM EST Office Visit Internal Medicine - [address] [phone] Jodi Campbell MD Type 2 diabetes mellitus with hyperglycemia, without long-term current use of insulin ([facility] V24, [facility] V28) (Primary Dx); Hypertension, unspecified type; Hyperlipidemia, unspecified hyperlipidemia type; Nonischemic cardiomyopathy ([facility] V24, [facility] V28); Polyp of colon, unspecified part of colon, unspecified type; Morbid obesity ([facility] V24, [facility] V28); Seropositive rheumatoid arthritis ([facility] V24, [facility] V28) from Last 3 Months Immunizations Immunization Administration Dates Next Due Influenza Quadravalent, MDCK [...] Site/Laterality Comments OTHER SURGICAL HISTORY 07/23/2010 PROCEDURE: VT SALPINGO-OOPHORECTOMY COMPL/PRTL UNI/BI SPX; COMMENT: Laparoscopic; performed by Dr. Crowe; dermoid cyst. COLONOSCOPY W/ BIOPSIES 06/07/2009 PROCEDURE: VT COLONOSCOPY W/BIOPSY SINGLE/MULTIPLE; COMMENT: Small proximal colonic polyp: Lymphoid aggregate, no neoplasia. CATARACT EXTRACTION 2018 Bilateral PROCEDURE: HISTORICAL CATARACT REMOVAL; COMMENT: OS Jul, OD Aug 2018 Dr Gu Medical History [...] left eye Benign neoplasm of colon 06/07/2009 DX:Yimi gn neoplasm of colon Family history of autism 06/13/2018 DX:Fami ly history of autism Diabetes mellitus type 2, co ntrolled, with complications (CMS/HCC V24, CMS/HCC V28) DX:Diabetes mellitus type 2, controlled, with complications ([facility]) Family history of cardiovasc ular disease DX:Family history of cardiov ascular disease Dysphagia DX:Dysphagia Hoarseness of voice DX:Hoarsenes s of voice Neck pain DX:Neck pain Shoulder pain DX:Shoulder pain Rheumatoid arthritis (CMS/ C V24, CMS/HCC V28) DX:Rheumatoid arthritis (HCC [...] for your loved ones. For example, child life assistant or elderly care for an older adult? [...] EST Respiratory Rate - - Oxygen Saturation 98% 10/03/2025 10:45 AM EST Inhaled Oxygen Concentration - - Weight 92.7 kg (204 lb 6.4 oz) 10/16/2025 9:36 A M EST Height 157.5 cm (5' 2 ) 10/16/2025 9:36 AM EST Body Mass Index 37.39 10/16/2025 9:36 AM EST Plan of Treatment Upcoming Encounters Date Type Department Care Team (Late st Contact Info) Description 11/16/2025 10:10 AM EST Appointment Radiology Department - [address] [phone] 04/01/2026 10:45 AM EDT Office Visit Internal Medicine - [address] [phone] Mónica Almanzar NP [address] [place] [address] 04/02/2026 10:00 AM EDT Ancillary Procedure [facility] [address] [facility] [address] [place] [phone] 05/01/2026 9:30 AM EDT Office Visit Endocrinology - [address] [phone] Roxana Tomas PA [address] [place] [address] Health Maintenance Due Date Last Done Comments Diabetes: Annual Foot Exam 1968 RSV Immunization Adult Patients (1 - Risk 50-74 years 1-dose series) 2008 COVID-19 Vaccine ( season) 2025 02/04/2023, 09/16/2021, 12/20/2020, Additional history exists Influenza Vaccine (#1) 2025 , 07/22/2022, 09/09/2021, Additional history exists Diabetes: Annual GFR (Glomerular Filtration Rate) 10/09/2025 10/09/2024, 04/13/2024, 04/13/2024 Hypertension/CHF/CAD Annual BMP Blood Test 10/09/2025 10/09/2024, 04/13/2024, 04/13/2024 Diabetes: Annual Retina Eye Exam 10/24/2025 10/24/2024, 10/19/2023 Diabetes: Blood Sugar Control Test (HGBA1C) 11/25/2025 05/25/2025, 10/09/2024, 04/13/2024, Additional history exists Falls Risk Assessment 01/04/2026 01/04/2025, 024 Medicare Annual Wellness Visit 01/04/2026 01/04/2025 Social Influencers of Health Screening 01/04/2026 01/04/2025 Diabetes: Annual Urine Albumin-Creatinine Ratio (uACR) 05/25/2026 05/25/2025, 12/14/2023 Colorectal Cancer Screening: Colonoscopy 08/18/2026 08/18/2023 Breast Cancer Screening 05/23/2027 05/23/20, 11/14/2024, 11/02/2023, Additional history exists DTaP,Tdap,and Td Vaccines (3 - Td or Tdap) 11/30/2029 11/30/2019, 05/13/2009, 11/14/1998 Cholesterol Screening (Lipid Panel) 05/25/2030 05/25/2025, 10/09/2024, 12/14/2023 Osteoporosis Screening (Bone Density Screening) 07/20/2033 07/20/2023 Hepatitis C Screening Completed 03/22/2018 Zoster Vaccines Completed 11/17/2020, 12/07/2019 Pneumococcal Vaccine: 50+ Years Completed 04/06/2023 Depression Screening Completed 10/01/2025, 12/14/19 24 HIB Vaccines Aged Out No longer eligi [...] complication, without long-term current use of insulin ([facility] V24, CMS/[facility] V28) MICROALBUMIN CREATININE URINE RATIO Routine 05/25/2025 12:34 PM EDT Type 2 diabetes mellitus without complication, without long-term current use of insulin ([facility] V24, CMS/[facility] V28) HEMOGLOBIN A1C Routine 05/25/2025 11:54 AM EDT Type 2 diabetes mellitus without complication, without long-term current use of insulin ([facility] V24, [facility] V28) LIPID PANEL WITH REFLEX TO DIRECT LDL Routine 05/25/2025 11:54 AM EDT Hyperlipidemia, unspecified hyperlipidemia type EXTERNAL MAMMOGRAM REPORT 05/23/2025 COMPREHENSIVE METABOLIC PANEL Routine 10/09/2024 12:13 PM EST Nonischemic cardiomyopathy (CMS/[facility] V24, CMS/[facility] V28) Primary hypertension Mixed hyperlipidemia FALLS RISK ASSESSMENT Routine 04/13/2024 DEPRESSION SCREENING Routine 12/14/2023 DIABETES EYE EXAM Routine 10/19/2023 COLONOSCOPY Routine 08/18/2023 DXA BONE DENSITY STUDY 1+ SITS AXIAL SKEL Routine 07/20/2023 1:28 PM EDT Encounter for screening for osteoporosis HEPATITIS C SCREENING Routine 03/22/2018 from Last 3 Months or Most Recently Relevant to Health Maintenance Results * POC glucose manually resulted (10/16/2025 9:44 AM EST) Glucose POC 94 mg/dL Blood Capillary blood specimen / Unknown 10/16/2025 9:44 AM EST Roxana LINARES POINT OF CARE TEST ENTER/ED IT ORDERABLES Final Result * Microalbumin creatinine urine ratio (05/25/2025 12:34 PM EDT) Creatinine, Urine 125.0 mg/dL LAB CHEMISTRY METHOD 05/25/2025 4:02 PM EDT [facility] Microalb, Ur 5.7 0.0 - 29.0 mg/L LAB CHEMISTRY METHOD 05/25/2025 4:02 PM EDT [facility] Microalb/Creat Ratio 5 <30 mg/g creat LAB CHEMISTRY METHOD 05/25/2025 4:02 PM EDT [facility] Urine Urine specimen from urethra / Unknown Non-blood Collection / Unknown 05/25/2025 12:34 PM EDT 05/25/2025 12:34 PM EDT us Roxana LINARES LAB URINE ORDERABLES Final Result [facility] [address] [place] [address], [place] [phone] * Lipid panel with reflex to direct LDL (05/25/2025 11:54 AM EDT) Cholesterol 162 0 - 200 mg/dL LAB CHEMISTRY METHOD 05/25/2025 4:24 PM EDT [facility] Triglycerides 108 0 - 150 mg/dL LAB CHEMISTRY METHOD 05/25/2025 4:24 PM EDT [facility] HDL 48 >=40 mg/dL LAB CHEMISTRY METHOD 05/25/2025 4:24 PM EDT [facility] LDL Calculated 92 0 - 100 mg/dL LAB CHEMISTRY METHOD 05/25/2025 4:24 PM EDT [facility] VLDL Cholesterol Jose 21.6 mg/dL LAB CHEMISTRY METHOD 05/25/2025 4:24 PM EDT [facility] Non HDL Chol. (LDL+VLDL) 114 <145 mg/dL LAB CHEMISTRY METHOD 05/25/2025 4:24 PM EDT [facility] Chol/HDL Ratio 3.4 0.0 - 4.4 LAB CHEMISTRY METHOD 05/25/2025 4:24 PM EDT [facility] Blood Venous blood specimen / Unknown Venipuncture / Unknown 05/25/2025 11:54 AM EDT 05/25/2025 11:54 AM EDT Compa Rivera MD LAB BLOOD ORDERABLES Wanda l Result [facility] [address] [place] [address], * Hemoglobin A1c (05/25/2025 11:54 AM EDT) Hemoglobin A1C 6.3 <6.5 % LAB CHEMISTRY METHOD 05/25/2025 9:23 PM EDT [facility] Mean Bld Glu Estim. 134 mg/dL LAB CHEMISTRY METHOD 05/25/2025 9:23 PM EDT [facility] Blood Venous blood specimen / Unknown Venipuncture / Unknown 05/25/2025 11:54 AM EDT 05/25/2025 11:54 AM EDT Roxana LINARES LAB BLOOD ORDERABLES Final Result [facility] [address] [place] [address], [place] [phone] * External Mammogram Report (05/23/2025) Anatomical Region Laterality Modality Mammography us Provider [facility] IMG BI PROCEDURES Final Result * (ABNORMAL) Comprehensive metabolic panel (10/09/2024 12:13 PM EST) Sodium 137 133 - 145 mmol/L LAB CHEMISTRY METHOD 10/09/2024 6:31 PM [facility] Potassium 3.8 3.5 - 5.5 mmol/L LAB CHEMISTRY METHOD 10/09/2024 6:31 PM [facility] Chloride 101 96 - 110 mmol/L LAB CHEMISTRY METHOD 10/09/2024 6:31 PM [facility] CO2 28 21 - 32 mmol/L LAB CHEMISTRY METHOD 10/09/2024 6:31 PM [facility] Anion Gap 8 3 - 11 LAB CHEMISTRY METHOD 10/09/2024 6:31 PM [facility] Glucose 108(H) 70 - 100 mg/dL LAB CHEMISTRY METHOD 10/09/2024 6:31 PM [facility] BUN 20 5 - 25 mg/dL LAB CHEMISTRY METHOD 10/09/2024 6:31 PM [facility] Creatinine 0.89 0.50 - 1.10 mg/dL LAB CHEMISTRY METHOD 10/09/2024 6:31 PM [facility] eGFR 72 >=60 mL/min/1. 73m2 LAB CHEMISTRY METHOD 10/09/2024 6:31 PM [facility] Comment:Calculation based on the Chronic Kidney Disease Epidemiology Collaboration (CKD-EPI) equation refit without adjustment for race. BUN/Creatinine Ratio 22.5 LAB CHEMISTRY METHOD 10/09/2024 6:31 PM [facility] Calcium 9.6 8.5 - 10.5 mg/dL LAB CHEMISTRY METHOD 10/09/2024 6:31 PM [facility] AST (SGOT) 18 10 - 42 unit/L LAB CHEMISTRY METHOD 10/09/2024 6:31 PM [facility] ALT (SGPT) 20 10 - 60 unit/L LAB CHEMISTRY METHOD 10/09/2024 6:31 PM [facility] Alkaline Phosphatase 90 42 - 121 unit/L LAB CHEMISTRY METHOD 10/09/2024 6:31 PM [facility] Total Protein 7.2 6.0 - 8.0 g/dL LAB CHEMISTRY METHOD 10/09/2024 6:31 PM [facility] Albumin 3.5 3.2 - 5.0 g/dL LAB CHEMISTRY METHOD 10/09/2024 6:31 PM [facility] Total Bilirubin 0.6 0.0 - 1.4 mg/dL LAB CHEMISTRY METHOD 10/09/2024 6:31 PM [facility] Blood Venous blood specimen / Unknown Venipuncture / Unknown 10/09/2024 12:13 PM EST 10/09/2024 12:13 PM EST Jessica Moya LABORATORY ADMINISTRATIVE DIRECTOR LAB BLOOD ORDERABLES Final R esult [facility] [address] [place] [address], * Falls Risk Assessment (04/13/2024) Falls Risk Assessment abstracted Historical Provider HEALTH MAINTENANCE Final Result * Depression Screening (12/14/2023) Depression Screening abstracted Historical Provider HEALTH MAINTENANCE Final Result * Diabetes Eye Exam (10/19/2023) Diabetes: Annual Retina Eye Exam abstracted Historical Provider HEALTH MAINTENANCE Final Result * Colonoscopy (08/18/2023) Colonoscopy no interpretation , abstracted Anatomical Region Laterality Modality Other Historical Provider HEALTH MAINTENANCE Final Result * DXA BONE DENSITY STUDY 1+ SITS AXIAL SKEL (07/20/2023 1:28 PM EDT) Anatomical Region Laterality Modality Bone Densitometr y 04/06/2023 1:17 PM EDT Narrative 07/20/2023 5:56 PM EDT BONE DENSITY SCAN (DEXA) FINDINGS: Lumbar Spine T-score is 0.0. (SD relative to 20-29 y/o adult) Z-score is 1.7. (SD relative to age matched peers) This is considered normal by WHO criteria. Left Hip T-score is 0.2. Z-score is 1.7. This is considered normal by WHO criteria. Comparison: None. IMPRESSION: IMPRESSION: Normal bone mineral density by WHO criteria. [facility] Department of Internal Medicine [...] Optional alternative screening schedule based on ricardo Morfni., [facility] December 03, 2011 for patients with osteopenia [...] bone mineral density by WHO criteria. [facility] Department of Internal Medicine [...] alternative screening schedule based on ricardo Morfin., [facility]2011 for patients with osteopenia (based on hip BMD T-score) is as follows: * advanced osteopenia (T scores -2.00 to -2.49), BMD testing every year * moderate osteopenia (T scores -1.50 to -1.99), BMD testing every 5years mild osteopenia or normal BMD (T scores -1.50 and higher), BMD testingevery 15 years Compa Rivera MD IMG DXA PROCEDURES Final Result * Hepatitis C Screening (03/22/2018) Health system Hepatitis C Screening abstracted us Historical Provider HEALTH MAINTENANCE Final Result from Last 3 Months or Most Recently Relevant to Health Maintenance Insurance MEDICARE [facility] Care Teams Die Attaching Machine Tender Relationship Specialty Start Date End Date Jodi Campbell [facility] [address] [facility] [place] [phone] PCP - General Internal Medicine 09/26/25
--- OUTSIDE RECORDS SUMMARY | 2025-10-16 12:57 | XMS_ITS ---
Author Name [facility] Organization Unknown History of Medication Use Medication Directions Dispensed Refills Start Date End Date Stat us dulaglutide (Trulicity) 0.75 mg/0.5 mL pen injector injection INJECT 0.75 MG SUBCUTANEOUSLY ONE TIME PER WEEK 04/10/2025 active Entresto 24-26 mg per tablet TAKE 1 TABLET BY MOUTH TWICE A DAY 04/02/2025 active spironolactone (ALDACTONE) 25 mg tablet TAKE 1 TABLET BY MOUTH EVERY DAY 04/02/2025 active oxyCODONE-acetaminop hen (PERCOCET) 5-325 mg per tablet Take 1 tablet by mouth every 8 (eight) hours if needed for severe pain for up to 3 days. Max Daily Amount: 3 tablets 03/30/2025 active carvediloL (COREG) 6.25 mg tablet TAKE 1 TABLET BY MOUTH TWICE A DAY WITH MEALS 03/15/2025 active atorvastatin (LIPITOR) 20 mg tablet TAKE 1 TABLET BY MOUTH EVERY DAY 02/07/2025 active cetirizine (ZyrTEC) 10 mg tablet TAKE 1 TABLET BY MOUTH EVERY DAY 11/07/2024 active empagliflozin (Jardiance) 10 mg tablet Take 1 tablet (10 mg total) by mouth 1 (one) time each day. 10/11/2024 active furosemide (LASIX) 40 mg tablet TAKE 1+1/2 TABS IN THE MORNING AND TAKE 1 TABLET IN THE AFTERNOON. 08/02/2024 active methotrexate 2.5 mg tablet Take 8 tablets (20 mg total) by mouth 1 (one) time per week 02/08/2024 active folic acid (FOLVITE) 1 mg tablet Take 1 tablet (1,000 mcg total) by mouth 1 (one) time each day. 04/29/2023 active Allergies Allergen Reaction Severity Comment Documented Date Source Statu s AMOXICILLIN-POT CLAVULANATE DIARRHEA Augmentin - Intolerance 06/23/2024 [facility] active Problems Problem Status Onset Date Problem Type Date of Resoluti on Source Headache active 2005-11-19 ProblemAct [facility] Ear infection active 2025-04-03 ProblemAct [facility] Morbid obesity ([facility] V24, [facility] V28) active 2019-05-05 ProblemAct [facility] Nonischemic cardiomyopathy ([facility] V24, [facility] V28) active 2019-05-02 ProblemAct [facility] Rheumatoid arthritis ([facility] V24, [facility] V28) active 2024-09-01 ProblemAct [facility] Dysphagia active 2024-09-01 ProblemAct [facility] Benign neoplasm of colon active 2009-06-07 ProblemAct [facility] Uterine fibroid active 2014-10-[address] [facility] Hyperlipidemia active 2021-04-17 ProblemAct [facility] Neck pain active 2024-09-01 ProblemAct [facility] Dizziness active 2008-05-10 ProblemAct [facility] Type 2 diabetes mellitus without complication, without long-term current use of insulin ([facility] V24, [facility] V28) active 2021-03-04 ProblemAct [facility] 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 ProblemAct [facility] Osteoarthritis of glenohumeral joint, left active 2021-05-06 ProblemAct [facility]_ [facility] Hypertension active 2021-04-17 ProblemAct [facility] Shortness of breath active 2021-10-21 ProblemAct [facility] Seropositive rheumatoid arthritis ([facility] V24, [facility] V28) active 2006-03-22 ProblemAct [facility] Shoulder pain active 2024-09-01 ProblemAct [facility] Hoarseness of voice active 2015-08-08 ProblemAct [facility] Immunizations Vaccine Date Source Lot Number Status Influenza trivalent, 0.5mL ( Fluad) 65yo and older 07/28/2023 [facility] [id number] completed Pneumococcal conjugate 20 va lent (Prevnar 20, PCV 20) 2mo and older 04/06/2023 [facility] [id number] comple iftikhar PPD Test 03/22/[facility]23 [id number] completed Influenza trivalent, 0.5mL, preservative free (Fluarix; FluLaval; Fluzone) ages 6mo and older (Afluria) 3 years and older 07/22/2022 [id number] completed Influenza Quadravalent, MDCK , 0.5ml, preservative free (Flucelvax) 6mo and older 09/09/2021 [facility] [id number] completed Moderna SARS-CoV-2 COVID-19, mRNA, LNP-S, preservative free 12/20/2020 [facility] [id number] completed Moderna SARS-CoV-2 COVID-19, mRNA, LNP-S, preservative free 11/19/2020 [facility] completed Zoster recombinant (Shingrix ) 19yo and older 11/17/2020 [facility] [id number] completed Influenza Quadravalent, MDCK , 0.5ml, preservative free (Flucelvax) 6mo and older 08/20/2020 [facility] [id number] completed Zoster recombinant (Shingrix ) 19yo and older 12/07/2019 [facility] [id number] completed Td Tetanus diptheria (Tdvax) 7yo and older 11/30/2019 [facility] [id number] completed Influenza trivalent, 0.5mL, preservative free (Fluarix; FluLaval; Fluzone) ages 6mo and older (Afluria) 3 years and older 08/04/2019 [facility] completed Influenza trivalent, 0.5mL, preservative free (Fluarix; FluLaval; Fluzone) ages 6mo and older (Afluria) 3 years and older 06/15/2018 [facility] completed Influenza trivalent, 0.5mL, preservative free (Fluarix; FluLaval; Fluzone) ages 6mo and older (Afluria) 3 years and older 10/21/2010 [facility] [id number] completed Tdap Tetanus diptheria acell ular pertussis (Boostrix; Adacel) 7yo and older 05/13/2009 [facility] [id number] completed TD, Adsorbed, Preservative Free 11/14/1998 [facility] completed Care Team Organization Name Specialty Phone Email Start Date End Da [facility] 07/04/2025
[2025-10-16 13:30] LABS: MANUAL DIFF FLAG NO
[2025-10-16 13:39] LABS: Hematocrit 37.6 % (37.0-47.0); Hemoglobin 12.2 g/dl (12.0-16.0); Imm Gran Abs Auto 0.03 X10*3/uL (0.00-0.03); Imm Gran Pct Auto 0.4 % (0.0-0.4); Lymphocytes Absolute Auto 2.0 X10*3/uL (1.2-4.9); Mean Corpuscular HGB Conc 32.4 g/dl (31.0-35.0); Mean Corpuscular Hemoglobin 29.3 pg (27.0-33.0); Mean Corpuscular Volume 90.2 fL (80.0-98.0); NRBC Abs Auto 0.000 X10*3/uL (0.0-0.012); NRBC Pct Auto 0.0 /100WBC (0.0-0.2); Platelet Count 174 X10*3/uL (160-400); Red Blood Count 4.17 X10*6/uL (4.20-5.50); White Blood Count 6.7 X10*3/uL (4.8-10.8)
[2025-10-16 13:55] LABS: Alanine Aminotransferase 18 U/L (0-31); Albumin Level 3.9 g/dL (3.5-5.0); Alkaline Phosphatase 78 U/L (39-117); Anion Gap 11 (12-20); Aspartate Amino Transferase 26 U/L (5-31); Blood Urea Nitrogen 32 mg/dL (9-16); Calcium 9.5 mg/dL (8.4-10.2); Carbon Dioxide 26 mmol/L (22-29); Chloride 104 mmol/L (96-108); Estimated Glomerular Filt Rate > 60; Potassium 4.3 mmol/L (3.3-5.1); Sodium 137 mmol/L (135-145); Total Protein 7.6 g/dL (6.5-8.0)
== END 2025-10-16 10:57 | disposition home or self-care (01) ==
LOC: HO.HKASLDS 10:56
PROVIDERS: PCP Internal Medicine; Visit Provider Student in an Organized Health Care Education/Training Program
DX: M05.79 Rheumatoid arthritis with rheumatoid factor of multiple sites without organ or systems involvement (principal); E55.9 Vitamin D deficiency, unspecified
CPT/HCPCS: 36415; 80053; 82306; 85025; 85652; 86140

== ENCOUNTER 2025-10-18 08:51 | Outpatient (AMB) | payer MEDICARE, OTHER, SELFPAY ==
--- OUTSIDE RECORDS SUMMARY | 2025-10-16 09:30 | XMS_ITS | Encounter Summary ---
Author Organization [facility] Address [address] [place] [address] Care Team Providers Care Industrial Relations Specialist Name Role Phone Jodi Campbell MD Primary Care Provider [phone] Reason for Visit * Reason Comments Diabetes Mellitus 6 month Encounter Details Date Type Department Care Team (Late st Contact Info) Description 10/16/2025 9:30 AM EST Office Visit Endocrinology - [address] [phone] Roxana Tomas PA [address] [place] [address] Type 2 diabetes mellitus without complication, without [...] for your loved ones. For example, child care specialist or elderly care for an older adult? [...] 09/01/2024 Neck pain 09/01/2024 Rhe[place]oid [place] [place] [facility] V28) 09/01/2024 Shoulder pain 09/01/2024 Osteoarthritis of glenohumeral joint, left 05/06/2021 Hyperlipidemia 04/17/2021 Hypertension 04/17/2021 Type 2 diabetes mellitus without complication, without long-term current use of insulin ([facility] V24, [facility] V28) 03/04/2021 Morbid obesity ([facility], [facility] V28) 05/05/2019 Nonischemic cardiomyopathy ([facility] V24, 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 V24, [facility] V28) 03/22/2006 Headache 11/19/2005 SOCIAL HISTORY: Social [...] complication, without long-term current use of insulin ([facility], [facility] V28) PLAN: Patient presents to the office [...] complication, without long-term current use of insulin ([facility] V24, [facility] V28) (Primary) - POC glucose manually resulted [...] 10:10 AM EST Appointment Radiology Department - [address] [phone] 04/01/2026 10:45 AM EDT Office Visit Internal Medicine - [address] [phone] Mónica Almanzar NP [address] [place] [phone] 04/02/2026 10:00 AM EDT Ancillary Procedure [facility] - [address] [place] [address] 05/01/2026 9:30 AM EDT Office Visit Endocrinology - [address] [phone] Roxana Tomas PA [address] [place] [address] Scheduled Orders Name Type Priority Associated Diagnoses Orde r Schedule Hemoglobin A1c Lab Routine Type 2 diabetes mellitus without complication, without long-term current use of insulin ([facility] V24, CMS/[facility] V28) 1 Occurrences starting 10/16/2025 until 10/16/2026 [...] complication, without long-term current use of insulin ([facility] V[facility], [facility] V28)- Primary documented in this encounter Discontinued [...] documented as of this encounter Care Teams Industrial Relations Specialist Relationship Specialty Start Date End Date Jodi Campbell MD [address] [place] [address] [place] [phone] PCP - General Internal Medicine 09/26/25 documented as of this encounter
--- NOTE | 2025-10-18 09:03 | A.OFFVIS_ITS ---
Vital Signs 10/18/25 09:09 Height 5 ft 2 in Weight 161 lb 9.581 oz BMI 29.6 BP 132/80 Blood Pressure Location Lt brachial Position Sitting Pulse 74 Pulse Source Pulse Oximeter Pulse Oximetry (%) 100 Oxygen Delivery Method Room Air Intake Visit Reasons: RA Intake Note: Patient presents today for RA follow up and test results. Personal Lines Advisor Required: No Accompanied by: Self / Same As Patient Allergies No Known Allergies Allergy (Verified 10/18/25 09:08) HPI Comments Details: Patient is a 65-year-old female with hypertension, hyperlipidemia, heart failure with reduced ejection fraction who presents today for follow up of seropositive rheumatoid arthritis Interval History: Patient last seen 04/18/2025 with me. - On methotrexate 20mg once weekly and leucovorin 5mg weekly - Patient notes improvement to her knees and wrists. Did not use the topical diclofenac or the splints. Also did not get the DEXA or the knee XRs - Doing well today - Complaining of right 5th toe pain Today - On methotrexate 20mg once weekly and leucovorin 5mg weekly - Doing well overall - recently admitted for acute appendicitis and bladder obstruction 2/2 prostate enlargement - Planning to go to [place], [place] and then [place] next February/March Rheumatologic History: Diagnosed with RA based on joint pain with synovitis and positive RF and CCP Hydroxychloroquine started 2016 scleritis 2017 Methotrexate added 04/01 Hydroxychloroquine stopped 2018 - ? Related to cardiomyopathy Current Rheumatology Medication(s): Methotrexate 20 mg once weekly Leucovorin 5mg once weekly (day after Mtx) [facility] Medical History (Updated 10/18/25 @ 09:43 by Audra Moore MD) Screening for osteoporosis Osteoarthritis of knees, bilateral Carpal tunnel syndrome on both sides Benign neoplasm of colon Nonischemic cardiomyopathy Type 2 diabetes mellitus Osteoarthritis of multiple joints Pain in joint, multiple sites Rheumatoid arthritis Dysphagia Hyperlipidemia Hypertension Surgical History Hx of colonoscopy History of salpingo-oophorectomy S/P cataract extraction Family History Father Myocardial infarction Diabetes Hypertension Mother Arthritis Daughter Autism Brother Diabetes Social History Household Members: Spouse Alcohol intake: current Alcohol intake frequency: holidays/special occasions only Patient Tobacco Use Status: Never used Tobacco Current occupational status: employed Review of Systems Narrative Review of Systems Constitutional: Denies fever, chills, weight loss ENT: Denies vision changes, eye pain or eye redness, dental caries, dry mouth GI: Denies nausea, vomiting, diarrhea, abdominal pain, change in BM Pulm: Denies SOB, OWENS, hemoptysis, wheezing Cards: Denies chest pain, palpitations Skin: Denies Raynaud's, rash, nail changes, photosensitivity, [employer]: Denies headaches, weakness, paresthesias, recurrent falls MSK: as per HPI All other systems reviewed and are unremarkable except noted above Physical Exam Exam Exam: Vital signs reviewed Physical Examination CONSTITUITIONAL Patient alert and cooperative. Well appearing and in no apparent painful distress MSK Hands * Right Hand: Able to make a fist. No swelling or tenderness to palpation of the MCPs, PIPs or DIPs. * Left Hand: Able to make a fist. No swelling or tenderness to palpation of the MCPs, PIPs or DIPs. Wrists * Right Wrist: Full ROM to flexion and extension. No swelling or TTP * Left Wrist: Full ROM to flexion and extension. No swelling or TTP Elbows * Right Elbow: Full ROM. No swelling or TTP. No TTP of the medial epicondyle. No TTP of the lateral epicondyle * Left Elbow: Full ROM. No swelling or TTP. No TTP of the medial epicondyle. No TTP of the lateral epicondyle Shoulders * Right shoulder: Full ROM. No swelling noted. No TTP of the AC joint. No TTP of the subacromial bursa. No TTP of the posterior shoulder * Left shoulder: Full ROM. No swelling noted. No TTP of the AC joint. No TTP of the subacromial bursa. No TTP of the posterior shoulder Knees * Right knee: Full ROM. No swelling noted. No TTP of the knee joint line. No TTP of pes anserine bursa * Left knee: Full ROM. No swelling noted. No TTP of the knee joint line. No TTP of pes anserine bursa. * Crepitations felt bilaterally Ankles * Right ankle: Good ankle dorsiflexion and plantar flexion. No swelling. No TTP of the ankle joint * Left ankle: Good ankle dorsiflexion and plantar flexion. No swelling. No TTP of the ankle joint Feet * Right foot: Negative squeeze test * Left foot: Negative squeeze test Tender points? * No tenderness to palpation of the bilateral trapezius, supraspinatus, anterior costochondral junctions, bilateral suboccipital muscle insertions SKIN No rashes Vital Signs: Last Vital Signs Pulse 74 10/18/25 09:09 BP 132/80 10/18/25 09:09 Pulse Ox 100 10/18/25 09:09 Oxygen Delivery Method Room Air 10/18/25 09:09 BMI result Body Mass Index 29.6 Results Reviewed Results Reviewed: Laboratory Tests 04/16/25 10/16/25 10:21 11:08 WBC 6.7 RBC 4.17 L Hgb 12.2 Hct 37.6 Plt Count 174 ESR 46 H 84 H Sodium 137 Potassium 4.3 Chloride 104 Carbon Dioxide 26 BUN 32 H Creatinine 0.92 AST 26 ALT 18 C-Reactive Protein 1.04 H 1.00 H 25-OH Vitamin D Total 40.2 DEXA 05/2025 FINDINGS: The bone mineral density of the lumbar spine is 1.174 g/cm2, corresponding to a T-score of -0.1, and a Z-score of 0.1. This is indicative of normal bone mineral density. The bone mineral density of the left total hip is 1.142 g/cm2, corresponding to a T-score of 1.1, and a Z-score of 0.8. This is indicative of normal bone mineral density. The bone mineral density of the left femoral neck is 0.908 g/cm2, corresponding to a T-score of -0.9, and a Z-score of -0.8. This is indicative of normal bone mineral density. Assessment & Plan Assessment & Plan (1) Rheumatoid arthritis: Comment: ++RF+++CCP Hydroxychloroquine started 2016, eye exam OK 03/03 scleritis 2017 Methotrexate added 04/01 Hydroxychloroquine stopped - ? Related to cardiomyopathy - 10/03 - eye exam OK Code(s): M06.9 - Rheumatoid arthritis, unspecified Category: Medical Qualifiers: Rheumatoid arthritis location: multiple sites Rheumatoid factor presence: with rheumatoid factor Qualified Code(s): M05.79 - Rheumatoid arthritis with rheumatoid factor of multiple sites without organ or systems involvement Plan: #Seropositive RA Patient is 65 year old female with seropositive rheumatoid arthritis currently in remission. Patient currently taking 8 tablets of the methotrexate weekly. Her ESR and CRP continued to be elevated despite clinical remission Tolerating leucovorin weekly. Plan - Continue Mtx 20mg weekly, split dosing - Leucovorin 5mg weekly fay after MTx - RTC February 2025 - Labs before visit: CBC, CMP, ESR, CRP (2) Osteoarthritis of knees, bilateral: Code(s): M17.0 - Bilateral primary osteoarthritis of knee Category: Medical Qualifiers: Osteoarthritis type: primary Qualified Code(s): M17.0 - Bilateral primary osteoarthritis of knee Plan: #Bilateral knee osteoarthritis Knee pain improved (3) Screening for osteoporosis: Comment: DEXA 05/2025: AP Spine -0.1, Left femur neck -0.9, Left femur total 1.1 Code(s): Z13.820 - Encounter for screening for osteoporosis Category: Medical Plan: #Screening for osteoporosis DEXA scan normal (4) detention current use of immunosuppressive drug: Code(s): Z79.899 - Other watermelon inspector (current) drug therapy Category: Medical Plan: #Long-term Current Use of Methotrexate Discussed with patient the benefits and risks of methotrexate for managing their rheumatic condition Benefits include reduced pain, reduced mortality, maintenance of remission and reduction of flares Risks include oral ulcers, photosensitivity, hepatotoxicity, hematologic toxicity, pneumonitis, flu-like symptoms (especially day after administration), nodulosis, lymphomas ? Limit alcohol and avoid Bactrim ? Monitoring: ?CBC, BMP, LFTs every 3-4 months and hepatitis serologies as needed Plan I spent 30 minutes reviewing the record and labs, taking a history, examining the patient, discussing the treatment plan and documenting in the medical record Coding Level of Care Code Complex visit Add On [id number] Diagnoses Rheumatoid arthritis involving multiple sites with positive rheumatoid factor M05.79 Rheumatoid arthritis location: multiple sites Rheumatoid factor presence: with rheumatoid factor Primary osteoarthritis of both knees M17.0 Osteoarthritis type: primary Screening for osteoporosis Z13.820 watermelon inspector current use of immunosuppressive drug Z79.899
[2025-10-18 09:09] VITALS: BP 132/80; PULSE 74; O2SAT 100; BMI 29.6
--- OUTSIDE RECORDS SUMMARY | 2025-10-18 09:34 | XMS_ITS | Clinical Summary ---
Author Organization [address] Address [address] [place] [phone] Phone Care Team Providers Care Centerless Grinder Set Up Operator Name Role Phone Jodi Campbell MD Primary Care Provider [phone] Allergies Active Allergy Reactions Criticality Noted Date [...] complication, without long-term current use of insulin ([facility] V24, CMS/HCC V28) INJECT 0.75 MG SUBCUTANEOUSLY [...] Dysphagia 09/01/2024 Neck pain 09/01/2024 Rheumatoid arthritis ([facility] V24, [facility] V28) 09/01/2024 Assessment & [...] complication, without long-term current use of insulin ([facility] V24, [facility] V28) 03/04/2021 Assessment & Plan (01/04/2025 9:59 AM EST): Diabetic diet discussed. Continue Jardiance and Trulicity. Orders: Hemoglobin A1c; Future Morbid obesity ([facility] V24, [facility] V28) 2018 Nonischemic cardiomyopathy ([facility] V24, [facility] V28) 05/02/2019 Overview (09/01/2024): CHF 04/2019 without recurrence. Cardiac cath was normal 05/02/2019, but LVEF was 20%, nonischemic cardiomyopathy. Was treated with Entresto and cardiac rehab. Is Manager is Dr. Brumfield at [facility]. On repeat echocardiogram 07/2019 she had mild [...] (09/01/2024): Due to RA Dr. Romero, eye [facility] Hoarseness of voice 08/08/2015 Overview (09/01/2024): [...] colonoscopy indicated 2018. Seropositive rheumatoid arth ritis ([facility] V24, [facility] V28) 03/22/2006 Overview (09/01/2024): [...] 10/16/2025 9:30 AM EST Office Visit Endocrinology [address] [phone] Roxana Tomas PA Type 2 diabetes mellitus without complication, without long-term current use of insulin ([facility] V24, [facility] V28) (Primary Dx) 10/03/2025 11:10 AM EST Office Visit [facility] [address] [place] [address] Jessica Moya NP Nonischemic cardiomyopathy ([facility] V24, [facility] V28) (Primary Dx); Primary hypertension; Hyperlipidemia, unspecified hyperlipidemia type 10/01/2025 10:00 AM EST Office Visit Internal Medicine - [address] [phone] Jodi Campbell MD Type 2 diabetes mellitus with hyperglycemia, without long-term current use of insulin ([facility] V24, [facility] V28) (Primary Dx); Hypertension, unspecified type; Hyperlipidemia, unspecified hyperlipidemia type; Nonischemic cardiomyopathy ([facility] V24, [facility] V28); Polyp of colon, unspecified part of colon, unspecified type; Morbid obesity ([facility] V24, [facility] V28); Seropositive rheumatoid arthritis ([facility] V24[facility] V28) from Last 3 Months Immunizations Immunization [...] for your loved ones. For example, director child development center or elderly care for an older adult? [...] 10:10 AM EST Appointment Radiology Department - [address] [phone] 04/01/2026 10:45 AM EDT Office Visit Internal Medicine - [address] [phone] Mónica Almanzar NP [address] [place] [address] 04/02/2026 10:00 AM EDT Ancillary Procedure [facility] - [facility] [address] [facility] [address] [place] [phone] 05/01/2026 9:30 AM EDT Office Visit Endocrinology - [address] [phone] Roxana Tomas PA [address] [place] [address] Health Maintenance Due Date Last Done Comments [...] Procedure Name Priority Date/Time Associated Diagnosis Comments EXTERNAL CLINICAL LAB 10/17/2025 POC GLUCOSE Routine 10/16/2025 9:44 AM EST Type 2 diabetes mellitus without complication, without long-term current use of insulin ([facility] V24, [facility] V28) MICROALBUMIN CREATININE URINE RATIO Routine 05/25/2025 12:34 PM EDT Type 2 diabetes mellitus without complication, without long-term current use of insulin ([facility] V24, [facility] V28) HEMOGLOBIN A1C Routine 05/25/2025 11:54 AM EDT Type 2 diabetes mellitus without complication, without long-term current use of insulin ([facility] V24, [facility] V28) LIPID PANEL WITH REFLEX TO DIRECT LDL Routine 05/25/2025 11:54 AM EDT Hyperlipidemia, unspecified hyperlipidemia type EXTERNAL MAMMOGRAM REPORT 05/23/2025 COMPREHENSIVE METABOLIC PANEL Routine 10/09/2024 12:13 PM EST Nonischemic cardiomyopathy (CMS/HCC V24, [facility] V28) Primary hypertension Mixed hyperlipidemia FALLS RISK ASSESSMENT Routine 04/13/2024 DEPRESSION SCREENING Routine 12/14/2023 DIABETES EYE EXAM Routine 10/19/2023 COLONOSCOPY Routine 08/18/2023 DXA BONE DENSITY STUDY 1+ SITS AXIAL SKEL Routine 07/20/2023 1:28 PM EDT Encounter for screening for osteoporosis HEPATITIS C SCREENING Routine 03/22/2018 from Last 3 Months or Most Recently Relevant to Health Maintenance Results * External clinical lab (10/17/2025) us Provider [facility] LAB BLOOD ORDERABLES Fin al Result * POC glucose manually resulted (10/16/2025 9:44 AM EST) Glucose POC 94 mg/dL Blood Capillary blood specimen / Unknown 10/16/2025 9:44 AM EST us Roxana LINARES POINT OF CARE TEST ENTER/ED IT ORDERABLES Final Result * Microalbumin creatinine urine ratio (05/25/2025 12:34 PM EDT) Creatinine, Urine 125.0 mg/dL LAB CHEMISTRY METHOD 05/25/2025 4:02 PM EDT [facility] Microalb, Ur 5.7 0.0 - 29.0 mg/L LAB CHEMISTRY METHOD 05/25/2025 4:02 PM EDT [facility] Microalb/Creat Ratio 5 <30 mg/g creat LAB CHEMISTRY METHOD 05/25/2025 4:02 PM EDT [facility] Urine Urine specimen from urethra / Unknown Non-blood Collection / Unknown 05/25/2025 12:34 PM EDT 05/25/2025 12:34 PM EDT us Roxana LINARES LAB URINE ORDERABLES Final Result [facility] [address] [place] [address], [place] [phone] * Lipid panel with reflex to direct LDL (05/25/2025 11:54 AM EDT) Cholesterol 162 0 - 200 mg/dL LAB CHEMISTRY METHOD 05/25/2025 4:24 PM EDT [facility] Triglycerides 108 0 - 150 mg/dL LAB CHEMISTRY METHOD 05/25/2025 4:24 PM EDT [facility] HDL 48 >=40 mg/dL LAB CHEMISTRY METHOD 05/25/2025 4:24 PM EDT [facility] LDL Calculated 92 0 - 100 mg/dL LAB CHEMISTRY METHOD 05/25/2025 4:24 PM EDT [facility] VLDL Cholesterol Jose 21.6 mg/dL LAB CHEMISTRY METHOD 05/25/2025 4:24 PM EDT [facility] Non HDL Chol. (LDL+VLDL) 114 <145 mg/dL LAB CHEMISTRY METHOD 05/25/2025 4:24 PM EDT [facility] Chol/HDL Ratio 3.4 0.0 - 4.4 LAB CHEMISTRY METHOD 05/25/2025 4:24 PM EDT [facility] Blood Venous blood specimen / Unknown Venipuncture / Unknown 05/25/2025 11:54 AM EDT 05/25/2025 11:54 AM EDT Compa Rivera MD LAB BLOOD ORDERABLES Wanda l Result [facility] [address] [place] [address], [place] [phone] * Hemoglobin A1c (05/25/2025 11:54 AM EDT) Hemoglobin A1C 6.3 <6.5 % LAB CHEMISTRY METHOD 05/25/2025 9:23 PM EDT [facility] Mean Bld Glu Estim. 134 mg/dL LAB CHEMISTRY METHOD 05/25/2025 9:23 PM EDT [facility] Blood Venous blood specimen / Unknown Venipuncture / Unknown 05/25/2025 11:54 AM EDT 05/25/2025 11:54 AM EDT Roxana LINARES LAB BLOOD ORDERABLES Final Result [facility] [address] [place] [address], * External Mammogram Report (05/23/2025) Anatomical Region Laterality Modality Mammography us Provider [facility] IMG BI PROCEDURES Final Result * (ABNORMAL) Comprehensive metabolic panel (10/09/2024 12:13 PM EST) Sodium 137 133 - 145 mmol/L LAB CHEMISTRY METHOD 10/09/2024 6:31 PM [facility] Potassium 3.8 3.5 - 5.5 mmol/L LAB CHEMISTRY METHOD 10/09/2024 6:31 PM [facility] Chloride 101 96 - 110 mmol/L LAB CHEMISTRY METHOD 10/09/2024 6:31 PM [facility] CO2 28 21 - 32 mmol/L LAB CHEMISTRY METHOD 10/09/2024 6:31 PM [facility] Anion Gap 8 3 - 11 LAB CHEMISTRY METHOD 10/09/2024 6:31 PM [facility] Glucose 108(H) 70 - 100 mg/dL LAB CHEMISTRY METHOD 10/09/2024 6:31 PM [facility] BUN 20 5 - 25 mg/dL LAB CHEMISTRY METHOD 10/09/2024 6:31 PM [facility] Creatinine 0.89 0.50 - 1.10 mg/dL LAB CHEMISTRY METHOD 10/09/2024 6:31 PM [facility] eGFR 72 >=60 mL/min/1. 73m2 LAB CHEMISTRY METHOD 10/09/2024 6:31 PM [facility] Comment:Calculation based on the Chronic Kidney Disease Epidemiology Collaboration (CKD-EPI) equation refit without adjustment for race. BUN/Creatinine Ratio 22.5 LAB CHEMISTRY METHOD 10/09/2024 6:31 PM [facility] Calcium 9.6 8.5 - 10.5 mg/dL LAB CHEMISTRY METHOD 10/09/2024 6:31 PM [facility] AST (SGOT) 18 10 - 42 unit/L LAB CHEMISTRY METHOD 10/09/2024 6:31 PM [facility] ALT (SGPT) 20 10 - 60 unit/L LAB CHEMISTRY METHOD 10/09/2024 6:31 PM [facility] Alkaline Phosphatase 90 42 - 121 unit/L LAB CHEMISTRY METHOD 10/09/2024 6:31 PM [facility] Total Protein 7.2 6.0 - 8.0 g/dL LAB CHEMISTRY METHOD 10/09/2024 6:31 PM [facility] Albumin 3.5 3.2 - 5.0 g/dL LAB CHEMISTRY METHOD 10/09/2024 6:31 PM [facility] Total Bilirubin 0.6 0.0 - 1.4 mg/dL LAB CHEMISTRY METHOD 10/09/2024 6:31 PM [facility] Blood Venous blood specimen / Unknown Venipuncture / Unknown 10/09/2024 12:13 PM EST 10/09/2024 12:13 PM EST Jessica Moya [employer] LAB BLOOD ORDERABLES Final R esult [facility] [address] [place] [address], [place] [phone] * Hm Falls Risk Assessment (04/13/2024) Pathologist [facility] Falls Risk Assessment abstracted us Historical Provider HEALTH MAINTENANCE Final Result * Depression Screening (12/14/2023) [facility] Depression Screening abstracted Result [facility] HEALTH MAINTENANCE Final Result * Diabetes Eye Exam (10/19/2023) [facility] Diabetes: Annual Retina Eye Exam abstracted Result [facility] HEALTH MAINTENANCE Final Result * Colonoscopy (08/18/2023) [facility] Colonoscopy no interpretation , abstracted Anatomical Region Laterality Modality Other [facility] HEALTH MAINTENANCE Final Result * DXA BONE [...] bone mineral density by WHO criteria. The [facility] Department of Internal Medicine recommends using National [...] alternative screening schedule based on ricardo Morfin., [facility] December 03, 2011 for patients with osteopenia [...] bone mineral density by WHO criteria. The [facility] Department of Internal Medicine recommendsusing National Osteoporosis [...] FRAX. Optional alternative screening schedule based on zohreh Morfin al., NEJMJanuary 2011 for patients with osteopenia (based on hip BMD T-score) is as follows: * advanced osteopenia (T scores -2.00 to -2.49), BMD testing every year * moderate osteopenia (T scores -1.50 to -1.99), BMD testing every 5years mild osteopenia or normal BMD (T scores -1.50 and higher), BMD testingevery 15 years us Compa Rivera MD IMG DXA PROCEDURES Final Result * Hepatitis C Screening (03/22/2018) [facility] Hepatitis C Screening abstracted Historical Provider HEALTH MAINTENANCE Final Result from Last 3 Months or Most Recently Relevant to Health Maintenance Insurance MEDICARE [facility] Care Teams Centerless Grinder Set Up Operator Relationship Specialty Start Date End Date Jodi Campbell MD [address] [place] [phone] PCP - General Internal Medicine 09/26/25
== END 2025-10-18 09:35 | disposition home or self-care (01) ==
LOC: HO.RHES 08:51
PROVIDERS: PCP Internal Medicine; Visit Provider Student in an Organized Health Care Education/Training Program
DX: M05.79 Rheumatoid arthritis with rheumatoid factor of multiple sites without organ or systems involvement (principal); M17.0 Bilateral primary osteoarthritis of knee; Z13.820 Encounter for screening for osteoporosis; Z79.899 Other long term (current) drug therapy
CPT/HCPCS: 99214; G2211

== ENCOUNTER → 2025-10-18 08:51 | Outpatient (BNVA) | payer MEDICARE, OTHER, SELFPAY | PROVIDERS: PCP Internal Medicine; Visit Provider Student in an Organized Health Care Education/Training Program | DX: Z71.2 Person consulting for explanation of examination or test findings (principal); S92.353A Displaced fracture of fifth metatarsal bone, unspecified foot, initial encounter for closed fracture; M81.0 Age-related osteoporosis without current pathological fracture | CPT/HCPCS: 99212 ==